=== PATIENT | male | born 1940 | race Caucasian/White ===

== ENCOUNTER 2018-05-22 21:56 | Inpatient (IN) ==
[2018-05-22 22:13] LABS: Baso # (Auto) 0.2 th/mm3 (0.0-0.2); Baso % (Auto) 2.9 % (0.0-2.0); Eos # (Auto) 0.3 th/mm3 (0.0-0.4); Hematocrit 36.3 % (39.0-51.0); Hemoglobin 11.8 gm/dL (13.0-17.0); Lymph # (Auto) 0.7 th/mm3 (1.0-4.8); Lymph % (Auto) 8.9 % (9.0-44.0); Mean Corpuscular HGB Conc 32.5 % (32.0-36.0); Mean Corpuscular Hemoglobin 27.5 pg (27.0-34.0); Mean Corpuscular Volume 84.8 fL (80.0-100.0); Mean Platelet Volume 10.8 fL (7.0-11.0); Mono # (Auto) 0.8 th/mm3 (0.0-0.9); Mono % (Auto) 9.6 % (0.0-8.0); Neut # (Auto) 6.2 th/mm3 (1.8-7.7); Neut % (Auto) 74.6 % (16.0-70.0); Platelet Count 135 th/mm3 (150-450); Red Blood Count 4.28 mil/mm3 (4.50-5.90); Red Cell Distribution Width 16.3 % (11.6-17.2); White Blood Count 8.2 th/mm3 (4.0-11.0)
[2018-05-22] MEDS ORDERED: Sod Chloride 0.9% Inj 1,000 ML IV.CONT SCH (22:15)
[2018-05-22 22:19] LABS: Chloride 100 meq/L (98-107); Potassium 4.2 meq/L (3.5-5.1); Sodium 138 meq/L (136-145)
--- NOTE | 2018-05-22 22:21 | ED ---
HPI General Chief Complaint: Neuro Symptoms/Deficit Stated Complaint: neuro symptoms x tonight 6:30pm Time Seen by Provider: 05/22/18 22:04 Source: patient and family Limitations: other History of Present Illness HPI Narrative: Patient is a 77-year-old male, past medical history significant for atrial fibrillation on Coumadin, COPD on CPAP at night, hypertension, diabetes, pacemaker, hypothyroidism, who presents with complaint of difficulty speaking that began at approximately 645 this evening. His states that they have just finished dinner when his speech started to sound "funny." After several minutes it went back to normal and then began again at an unknown time. Patient denies other symptoms at this time but history is limited secondary to his difficulty speaking. Onset (ago): hour(s) Last Observed Normal: 18:45 Timing confirmed by: spouse Location: speech and dysarthria History of same: No Severity: moderate Relieving factors: none Exacerbating factors: none Context: sudden onset On Anticoagulants: Yes Associated symptoms: denies other symptoms Treatments Prior to Arrival: none Related Data Home Medications Medication Instructions Recorded Confirmed Novolog Mix 70-30 U-100 Insuln 45 units INJ BID 05/22/18 05/22/18 bumetanide 1 mg PO BID 05/22/18 05/22/18 carvedilol 3.125 mg PO BID 05/22/18 05/22/18 cholecalciferol (vitamin D3) 2,000 unit PO DAILY 05/22/18 05/22/18 [Vitamin D3] colchicine 0.6 mg PO DAILY 05/22/18 05/22/18 ferrous sulfate [FeroSul] 3 mg/kg PO DAILY 05/22/18 05/22/18 levothyroxine 88 mcg PO DAILY 05/22/18 05/22/18 metolazone 5 mg PO DAILY 05/22/18 05/22/18 potassium chloride [K-Tab] 20 meq PO DAILY 05/22/18 05/22/18 probenecid 500 mg PO BID 05/22/18 05/22/18 ranitidine HCl 150 mg PO DAILY 05/22/18 05/22/18 simvastatin 40 mg PO QPM 05/22/18 05/22/18 warfarin 8 mg PO DAILY 05/22/18 05/22/18 zaleplon 10 mg PO DAILY 05/22/18 05/22/18 Allergies Allergy/AdvReac Type Severity Reaction Status Date / Time No Known Allergies Allergy Verified 05/22/18 22:31 Review of Systems Except as stated in HPI: all other systems reviewed are negative (per his ) Constitutional Denies fever(s) Eyes Denies photophobia ENT Denies nasal congestion Cardiovascular Denies chest pain Respiratory Denies dyspnea Gastrointestinal Denies abdominal pain Genitourinary Denies flank pain Musculoskeletal Denies back pain Integumentary/Breasts Denies rash Neurologic Reports abnormal speech and Denies headache(s) [facility] Medical History Medical History CHF (congestive heart failure) (Acute) History of high cholesterol (Acute) Hx of renal failure (Acute) Atrial fibrillation (Acute) COPD (chronic obstructive pulmonary disease) (Acute) Cardiac pacemaker (Acute) HTN (hypertension) (Acute) Hypothyroidism (Acute) Type 2 diabetes mellitus (Acute) Surgical History Surgical History Hx of cataract surgery (Acute) History of coronary artery bypass surgery (Acute) Social History Social History Substance History: No History of Abuse Second Hand Smoke Exposure: No Smoking Status: Former smoker Tobacco Type: Cigarettes How Often Do You Have a Drink Containing Alcohol: Never Recent Travel in [facility] within the Last 8 Weeks: No Recent Out of Country Travel within the Last 8 Weeks: No Exam Narrative Exam Narrative: GENERAL: Well-appearing male in no acute distress SKIN: Focused skin assessment warm/dry. HEAD: Atraumatic. Normocephalic. EYES: Pupils equal and round. No scleral icterus. No injection or drainage. ENT: No nasal bleeding or discharge. Mucous membranes pink and moist. NECK: Trachea midline. No JVD. CARDIOVASCULAR: Regular rate and rhythm. No murmur appreciated. Intact and equal peripheral pulses. RESPIRATORY: No accessory muscle use. Clear to auscultation. Breath sounds equal bilaterally. GASTROINTESTINAL: Abdomen soft, non-tender, nondistended. Hepatic and splenic margins not palpable. MUSCULOSKELETAL: No obvious deformities. No clubbing. No cyanosis. No edema. NEUROLOGICAL: Awake and alert. Expressive aphasia with dysarthria. Right lower extremity is weaker than the left. Upper extremities have equal strength. Denies changes in sensation. No facial droop. PSYCHIATRIC: Appropriate mood and affect; insight and judgment normal. Course Initial Documented Vital Signs Pulse Rate 72 05/22/18 22:06 Respiratory Rate 16 05/22/18 22:06 Blood Pressure 140/72 05/22/18 22:06 Pulse Oximetry 96 05/22/18 22:06 Last Documented Vital Signs Temperature 98.0 F 05/22/18 22:13 Pulse Rate 60 05/22/18 23:46 Respiratory Rate 16 05/22/18 23:46 Blood Pressure 121/68 05/22/18 23:46 Pulse Oximetry 96 05/22/18 23:46 Critical Care Time Critical Care Time: Yes Total Critical Care Time: 35 Attestation: Aggregate critical care time was 30 minutes. Time to perform other separately billable procedures was not included in the critical care time. My time did not include minutes spent treating any other patients simultaneously or on activities that did not directly contribute to the patient's treatment. The services I provided to this patient were to treat and/or prevent clinically significant deterioration that could result in: , disability. I provided critical care services requiring my management, as noted below: Chart data review, documentation time, medication orders and management, vital sign assessments/reviewing monitor data, ordering and reviewing lab tests, ordering and interpreting/reviewing x-rays and diagnostic studies, care of the patient and discussion of the patient with the admitting physicians (Dr Dillon the admitting physician, Dr Espinoza - the neurologist, and Dr Villeda - the radiologist). NIH Stroke Scale NIH Stroke Scale Level of Consciousness: 0-Alert Orientation Questions: 0-Answers both correct Responds to Commands: 0-Both tasks correct Gaze Eye Movement: 0-Horizontal movement WNL Visual Mon: 0-No visual field defect Facial Movement: 0-Normal Motor Functions Arm LEFT: 0-No drift Motor Functions Arm RIGHT: 0-No drift Motor Functions Leg LEFT: 0-No drift Motor Functions Leg RIGHT: 1-Drift before 5 seconds Limb Ataxia: 0-No ataxia Sensory Loss: 0-No sensory loss Best Language: 2-Severe aphasia Articulation: 2-Severe dysarthria Extinction or Inattention Sensory: 0-Absent Total: 5 Medical Decision Making MDM Narrative Medical decision making narrative: Patient is a 77-year-old male past medical history save for significant cardiac disease on Coumadin, who presents with complaint of dysarthria and expressive aphasia. On exam he had dysarthria, depressed aphasia, in addition to small amount of right lower extremity weakness, thus code stroke was activated on arrival (LKWT 3 hours prior). Stroke scale was 4-5. CT head showed a subacute or chronic lesion in the left periventricular region. CTA did not show a large clot burden that could be intervened on. I spoke with Dr. Espinoza of neurology who recommended we do not give TPA at this time as we had his INR back (< 1.7) more than 3 hours after the symptoms had started. Dr. Espinoza then recommended the patient be placed on a heparin drip without bolus and admitted to the hospital for further management and evaluation. Differential Diagnosis Differential Diagnosis: Differential diagnosis includes but is not limited to hypoglycemia, acute intracranial hemorrhage, acute cerebral thrombosis, meningitis. Medical Records Medical records reviewed: Yes I reviewed the patient's medical records. Lab Data Lab results reviewed: Yes I reviewed the patient's lab results. Lab results narrative: Labs reveal an elevated creatinine and an INR of only 1.3. Result diagrams: 05/22/18 22:05 05/22/18 22:05 Lab Results 05/22/18 05/22/18 05/22/18 Range/Units 22:05 22:05 22:05 CBC w Diff Auto diff final WBC 8.2 (4.0-11.0) th/mm3 RBC 4.28 L (4.50-5.90) mil/mm3 Hgb 11.8 L (13.0-17.0) gm/dL Hct 36.3 L (39.0-51.0) % MCV 84.8 (80.0-100.0) fL MCH 27.5 (27.0-34.0) pg MCHC 32.5 (32.0-36.0) % RDW 16.3 (11.6-17.2) % Plt Count 135 L (150-450) th/mm3 MPV 10.8 (7.0-11.0) fL Neut % (Auto) 74.6 H (16.0-70.0) % Lymph % (Auto) 8.9 L (9.0-44.0) % Charlton % (Auto) 9.6 H (0.0-8.0) % Eos % (Auto) 4.0 (0.0-4.0) % Baso % (Auto) 2.9 H (0.0-2.0) % Neut # (Auto) 6.2 (1.8-7.7) th/mm3 Lymph # (Auto) 0.7 L (1.0-4.8) th/mm3 Charlton # (Auto) 0.8 (0.0-0.9) th/mm3 Eos # (Auto) 0.3 (0.0-0.4) th/mm3 Baso # (Auto) 0.2 (0.0-0.2) th/mm3 WBC Differential . Differential Comment . PT 12.7 H (9.8-11.6) sec INR 1.3 Ratio APTT 28.3 (24.3-30.1) sec Sodium 138 (136-145) meq/L Potassium 4.2 (3.5-5.1) meq/L Chloride 100 (98-107) meq/L Carbon Dioxide 31.3 (21.0-32.0) meq/L Anion Gap 7 (5-15) meq/L BUN 36 H (7-18) mg/dL Creatinine 1.60 H (0.60-1.30) mg/dL Estimated GFR 42 L (>89) mL/min Random Glucose 97 (74-106) mg/dL Calcium 9.2 (8.5-10.1) mg/dL Total Creatine Kinase 142 (39-308) U/L CK-MB (CK-2) 2.6 (0.5-3.6) ng/mL Troponin I 0.02 (0.02-0.05) ng/mL Blood Type Antibody Screen 05/22/18 Range/Units 22:05 CBC w Diff WBC (4.0-11.0) th/mm3 RBC (4.50-5.90) mil/mm3 Hgb (13.0-17.0) gm/dL Hct (39.0-51.0) % MCV (80.0-100.0) fL MCH (27.0-34.0) pg MCHC (32.0-36.0) % RDW (11.6-17.2) % Plt Count (150-450) th/mm3 MPV (7.0-11.0) fL Neut % (Auto) (16.0-70.0) % Lymph % (Auto) (9.0-44.0) % Charlton % (Auto) (0.0-8.0) % Eos % (Auto) (0.0-4.0) % Baso % (Auto) (0.0-2.0) % Neut # (Auto) (1.8-7.7) th/mm3 Lymph # (Auto) (1.0-4.8) th/mm3 Charlton # (Auto) (0.0-0.9) th/mm3 Eos # (Auto) (0.0-0.4) th/mm3 Baso # (Auto) (0.0-0.2) th/mm3 WBC Differential Differential Comment PT (9.8-11.6) sec INR Ratio APTT (24.3-30.1) sec Sodium (136-145) meq/L Potassium (3.5-5.1) meq/L Chloride (98-107) meq/L Carbon Dioxide (21.0-32.0) meq/L Anion Gap (5-15) meq/L BUN (7-18) mg/dL Creatinine (0.60-1.30) mg/dL Estimated GFR (>89) mL/min Random Glucose (74-106) mg/dL Calcium (8.5-10.1) mg/dL Total Creatine Kinase (39-308) U/L CK-MB (CK-2) (0.5-3.6) ng/mL Troponin I (0.02-0.05) ng/mL Blood Type B Positive Antibody Screen Negative Imaging Data Attestation: I personally reviewed and interpreted this imaging study as follows : My impression: No acute intracranial hemorrhage. Radiologist's impression: Chest X-Ray 05/22/18 22:04 CONCLUSION: 1. Blunting of the right costophrenic angle consistent with small effusion. 2. Moderate cardiomegaly with no perihilar edema. 3. Status post median sternotomy. Head CT 05/22/18 22:04 CONCLUSION: 1. Subcentimeter subacute or older lacunar infarct in the left periventricular white matter. No acute hemorrhage or mass effect. Report was called by [Dr. Villeda to Dr. Henderson at 10:23 PM ] Head CTA 05/22/18 22:04 CONCLUSION: 1. Examination within normal limits for age. Neck CTA 05/22/18 22:04 CONCLUSION: 1. Bilateral calcific plaquing in the carotid bulbs and internal carotid arteries with approximately 50% diameter stenosis. 2. Calcified plaque in the origin of the great vessels with no significant stenosis. ECG Data EKG Prior to Arrival: No Attestation: I personally reviewed and interpreted this ECG as follows: ( Ventricularly paced rhythm at 64 bpm. T-wave inversions present in leads I, 2, V5, V6. No ST changes.) Discharge Plan Discharge Disposition Patient Disposition: 30 Still Patient Discharge Condition Condition: Serious Discharge Details Diagnosis: Acute CVA (cerebrovascular accident), Aphasia Physicians Team ED Provider: Alicia Henderson Primary Care Provider: Rajat Conde Attending Provider: Alan Dillon Discharge Interventions Interventions: Vital Signs Last Done: 05/22/18 23:46 Status ED Status: Admitted Patient
[2018-05-22 22:22] LABS: Anion Gap 7 meq/L (5-15); Calcium 9.2 mg/dL (8.5-10.1); Carbon Dioxide 31.3 meq/L (21.0-32.0); Glucose,Random 97 mg/dL (74-106)
[2018-05-22 22:23] LABS: Blood Urea Nitrogen 36 mg/dL (7-18)
[2018-05-22 22:24] LABS: Activated Partial Thrombo Time 28.3 sec (24.3-30.1); INR 1.3 Ratio; Prothrombin Time 12.7 sec (9.8-11.6)
--- NOTE | 2018-05-22 22:25 | CT ---
EXAM DATE: 05/22/2018 10:18 PM EDT AGE/SEX: 77 years / Male INDICATIONS: Slurred speech. CLINICAL DATA: This is the patient's initial encounter. Patient reports that signs and symptoms have been present for 1 day and indicates a pain score of 0/10. MEDICAL/SURGICAL HISTORY: Hypertension. Diabetes. CABG. Pacemaker. RADIATION DOSE: 60.17 CTDI (mGy) COMPARISON: No prior exams available for comparison. TECHNIQUE: CT of the head without contrast. Using automated exposure control and adjustment of the mA and/or kV according to patient size, radiation dose was kept as low as reasonably achievable to ob tain optimal diagnostic quality images. DICOM format image data is available electronically for revi ew and comparison. FINDINGS: Cerebrum: There is a small subacute or old lacunar infarct in left periventricular white matter. No mass, hemorrhage or shift. No other infarcts identified. Posterior Fossa: The cerebellum and brainstem are intact. The 4th ventricle is midline. The cerebe llopontine angle is unremarkable. Extracranial: The visualized portion of the orbits is intact. Skull: The calvaria is intact. No evidence of skull fracture. CONCLUSION: 1. Subcentimeter subacute or older lacunar infarct in the left periventricular white matter. No acut e hemorrhage or mass effect. Report was called by [Dr. Villeda to Dr. Henderson at 10:23 PM ] Electronically signed by: Yash Villeda MD 05/22/2018 10:24 PM EDT
[2018-05-22 22:26] LABS: Glomerular Filtration Rate 42 mL/min (>89)
[2018-05-22 22:29] LABS: Creatine Kinase 142 U/L (39-308)
[2018-05-22 22:30] LABS: Troponin I 0.02 ng/mL (0.02-0.05)
[2018-05-22 22:41] LABS: Creatine Kinase MB 2.6 ng/mL (0.5-3.6)
--- NOTE | 2018-05-22 22:54 | CT ---
EXAM DATE: 05/22/2018 10:43 PM EDT AGE/SEX: 77 years / Male INDICATIONS: Stroke alert. Slurred speech. CLINICAL DATA: This is the patient's initial encounter. Patient reports that signs and symptoms have been present for 1 day and indicates a pain score of 0/10. MEDICAL/SURGICAL HISTORY: Hypertension. Diabetes. CABG. Pacemaker. RADIATION DOSE: 42.31 CTDI (mGy) ; Combined studies COMPARISON: No prior exams available for comparison. TECHNIQUE: Volumetric scanning was performed using a multi-row detector CT scanner during bolus infu shan of 50 ml Visipaque 320 (iodixanol) nonionic water-soluble contrast as a cumulative dose for mul tiple exams. The data was post processed with a variety of visualization algorithms including full volume maximum intensity projection, multi-planar sliding thin slab reformation, curved planar reform ation, and surface rendering techniques. Using automated exposure control and adjustment of the mA a nd/or kV according to patient size, radiation dose was kept as low as reasonably achievable to obtain optimal diagnostic quality images. DICOM format image data is available electronically for review a nd comparison. FINDINGS: There is excellent visualization of the major intracranial arteries out to the second-order branch ve ssels. There is no evidence for aneurysm, vessel truncation or stenosis, and no evidence for vascula r malformation. CONCLUSION: 1. Examination within normal limits for age. Electronically signed by: Yash Villeda MD 05/22/2018 10:53 PM EDT
--- NOTE | 2018-05-22 23:02 | XR ---
EXAM DATE: 05/22/2018 10:41 PM EDT AGE/SEX: 77 years / Male INDICATIONS: Stroke alert. CLINICAL DATA: This is the patient's initial encounter. Patient reports that signs and symptoms have been present for 1 day and indicates a pain score of 0/10. MEDICAL/SURGICAL HISTORY: Diabetes. Hypertension. CABG. Pacemaker. COMPARISON: [facility], CHEST PA & LAT, 08/02/2013. . FINDINGS: A single AP semierect view the chest was obtained and demonstrates the patient is status post median sternotomy. The left subclavian transvenous pacer remains in place. Moderate cardiomegaly is again no mirta. There is blunting of the right costophrenic angle. There is no perihilar edema. There are no con fluent infiltrates. The bony thorax is intact. CONCLUSION: 1. Blunting of the right costophrenic angle consistent with small effusion. 2. Moderate cardiomegaly with no perihilar edema. 3. Status post median sternotomy. Electronically signed by: Oscar Guajardo MD 05/22/2018 11:01 PM EDT
--- NOTE | 2018-05-22 23:31 | CT ---
EXAM DATE: 05/22/2018 11:19 PM EDT AGE/SEX: 77 years / Male INDICATIONS: Stroke alert. Slurred speech. CLINICAL DATA: This is the patient's initial encounter. Patient reports that signs and symptoms have been present for 1 day and indicates a pain score of 0/10. MEDICAL/SURGICAL HISTORY: Diabetes. Hypertension. CABG. Pacemaker. RADIATION DOSE: 42.31 CTDI (mGy) ; Combined studies COMPARISON: [facility], CT CHEST W/O CONTRAST, 11/12/2015. . TECHNIQUE: Volumetric scanning was performed using a multirow detector CT scanner during bolus infus ion of 50 ml Visipaque 320 (iodixanol) nonionic water-soluble contrast as a cumulative dose for mult iple exams. The data was postprocessed with a variety of visualization algorithms including full-vo lume maximum intensity projection, multiplanar sliding thin-slab reformation, curved-planar reformati on, and surface-rendering techniques. Using automated exposure control and adjustment of the mA and/ or kV according to patient size, radiation dose was kept as low as reasonably achievable to obtain op timal diagnostic quality images. DICOM format image data is available electronically for review and comparison. FINDINGS: Aortic Arch: There is a three-vessel origin of the great vessels from the aorta. Calcification is no mirta in the ostiomeatal regions with no significant stenosis identified. Right Carotid: The common carotid artery is intact. There is mild to moderate calcific plaquing in t he carotid bulb and proximal internal carotid artery with an approximate 50% diameter stenosis. The i nternal carotid artery lumen is smooth without stenosis. The external carotid artery is intact. Left Carotid: The common carotid artery is intact. There is mild to moderate plaque in the carotid b ulb and proximal internal carotid artery with approximate 50% diameter stenosis. The internal carotid artery lumen is smooth without stenosis. The external carotid artery is intact. Vertebrals: The vertebral arteries have a symmetric diameter. No stenotic lesions are seen. Multiple pretracheal and periaortic lymph nodes are again identified. One of the periaortic lymph nod es is more prominent now measures approximately 1.7 cm compared to 1.4 cm on the 2016 examination. So me of the pretracheal lymph nodes are fatty replaced. There is a right pleural effusion which is part ially visualized. The patient is status post median sternotomy. Percent stenosis is calculated using the diameter of the stenotic region over the diameter of the nor mal distal internal carotid artery. CONCLUSION: 1. Bilateral calcific plaquing in the carotid bulbs and internal carotid arteries with approximately 50% diameter stenosis. 2. Calcified plaque in the origin of the great vessels with no significant stenosis. Electronically signed by: Oscar Guajardo MD 05/22/2018 11:30 PM EDT
[2018-05-23 00:47] LABS: Bilirubin,Urine Negative (Negative); Clarity,Urine Clear (Clear); Color,Urine Yellow (Yellw/Straw); Glucose,Urine (UA) Negative (Negative); Leukocyte Esterase,Urine Negative (Negative); Nitrite,Urine Negative (Negative); PH,Urine 7.5 (5.0-8.5); Urobilinogen,Urine 0.2 mg/dL (Less than 2)
[2018-05-23] MEDS: Heparin Drip 25,000 UNIT/250 ML BAG IV.CONT PRN ×2 (00:48→19:18)
[2018-05-23 00:55] LABS: RBC,Urine 0-3 /hpf (0-3); Squamous Epithelial Cell,Urine 0-5 /hpf (0-5); WBC,Urine 0-5 /hpf (0-5)
[2018-05-23 04:56] LABS: Hematocrit 35.7 % (39.0-51.0); Hemoglobin 11.6 gm/dL (13.0-17.0); Mean Corpuscular HGB Conc 32.4 % (32.0-36.0); Mean Corpuscular Hemoglobin 27.9 pg (27.0-34.0); Mean Corpuscular Volume 86.2 fL (80.0-100.0); Mean Platelet Volume 10.2 fL (7.0-11.0); Platelet Count 120 th/mm3 (150-450); Red Blood Count 4.14 mil/mm3 (4.50-5.90); White Blood Count 7.3 th/mm3 (4.0-11.0)
[2018-05-23 08:36] LABS: INR 1.3 Ratio; Prothrombin Time 13.6 sec (9.8-11.6)
--- NOTE | 2018-05-23 08:45 | MB ---
cc: Darian Espinoza MD, PhD DATE: 05/23/2018 REASON FOR CONSULTATION: Stroke alert. HISTORY OF PRESENT ILLNESS: Mr. Martínez is a very pleasant 77-year-old man with atrial fibrillation, presented to the hospital yesterday with acute onset of difficulty getting words out and some mild weakness of the right lower extremity. The patient was on Coumadin for atrial fibrillation, which has been on hold because of ophthalmologic surgery; however, he did resume his Coumadin last Tuesday, but was only on it for 4 days prior to yesterday's event. NIH stroke scale in the ER was 4. His symptoms began abruptly at 6:45 p.m. However, he was seen by the ER physician at 2204. He was evaluated with a CT scan of the brain, which showed a small area of low attenuation in the left periventricular white matter suggestive of a subacute stroke versus a more chronic process. No hemorrhage. I discussed this case with Dr. Alicia Henderson in the emergency room yesterday evening. He was beyond the 3 hour window. However, because he was on Coumadin, was not a candidate for the 4-1/2 hour window for TPA, which stipulates the patient is not a candidate for the 4-1/2 hour window, if on Coumadin despite the INR. Therefore, we proceeded with CT angiography of the brain to evaluate for the possibility of a large vessel occlusion that would be amenable to intravascular extraction. However, the CTA of the brain was within normal limits. The INR came back at subtherapeutic at 1.3. I recommended, therefore, since the patient is not a candidate for TPA and there is no evidence of large area of ischemia to go ahead and start IV heparin, which has been instituted. The patient reports significant improvement. He thinks his speech is back to normal at the present time with normal fluency. No weakness. PAST MEDICAL HISTORY: He has got a pacemaker in place, atrial fibrillation, recent cataract surgery, COPD, hypertension, hypothyroidism, type 2 diabetes, congestive heart failure, hypercholesterolemia, history of renal failure. CURRENT MEDICATIONS: 1. IV heparin per protocol. 2. Atropine sulfate to the left eye b.i.d. 3. Bumex 1 mg daily. 4. Coreg 3.125 mg b.i.d. 5. Iron sulfate 325 mg b.i.d. 6. Synthroid 88 mcg daily. 7. Vitamin D supplementation. 8. He takes NovoLog insulin b.i.d. 9. Simvastatin 40 mg daily. 10. Ranitidine 150 mg daily. 11. Prednisolone eyedrops. 12. Benemid 500 mg b.i.d. 13. Ocuflox eyedrops. 14. Coumadin 5 mg daily. 15. Sonata as needed for sleep. NEUROLOGICAL EXAMINATION: VITAL SIGNS: His blood pressure is 121/68, pulse is 60, respirations are 16, temperature 97.2 degrees. Higher cortical function: Alert and oriented x3. Speech is fluent at the present time. There is no evidence of aphasia. He can follow commands. He can repeat simple phrases with normal fluency. There is no neglect. Cranial nerves are normal in detail. Motor exam demonstrates 5/5 strength of all groups in both upper and lower extremities. There is no drift. Fine motor skills are normal. Reflexes are 2+ symmetric with no Babinski present. CT of the brain shows a very small area of low attenuation in the left periventricular white matter, probably subacute stroke. No hemorrhage is identified. CTA brain is normal and no evidence of large vessel occlusion. CTA neck shows bilateral calcified plaques in the carotid arteries, but only approximately 50% stenosis bilaterally. LABORATORY DATA: The white count is 8200, hemoglobin 11.8, hematocrit 36.3%, platelet count 135,000. As noted prior INR on admission 1.3. PT 12.7, APTT 28.3. Currently on IV heparin, APTT 38.2. Sodium is 138, potassium 4.2, chloride 100, CO2 31.3, BUN is 36, creatinine 1.60, GFR is 42, glucose 97, calcium 9.2. CPK 142. UA pH 7.5, specific gravity 1.010, otherwise normal. IMPRESSION: A small left MCA distribution stroke with resolution of his symptoms, probably cardioembolic in nature. As noted above, the patient is not a candidate for IV TPA as he was out of the 3-hour window. There is no evidence of any large vessel occlusion for interventional radiology. At the current time, would recommend continuing IV heparin. Continue Coumadin. We will discontinue the heparin once the INR is therapeutic, i.e., between 2 and 3. Also obtain an echocardiogram and will review a lipid panel as well. Thank you for asking me to see this nice patient in consult. Darian Espinoza MD, PhD EAN/KAVYA , 08:20 AM , 08:32 AM
[2018-05-23] MEDS: BRINZOLAMIDE BRIMONIDINE LEFT EYE SCH ×3 (10:47→17:35)
[2018-05-23] MEDS: Atropine 1% Opth Drops 2 ML Bottle LEFT EYE SCH ×2 (10:47→21:00)
[2018-05-23] MEDS: Famotidine 20 MG Tablet PO SCH (10:48)
[2018-05-23] MEDS: Ferrous Sulfate 325 MG Tablet PO SCH ×2 (10:48→21:05)
[2018-05-23] MEDS: Ofloxacin 0.3% Opth Drops 5 ML Bottle LEFT EYE SCH ×7 (10:49→22:28)
[2018-05-23] MEDS: prednisoLONE Acetate 1% Opth Susp 5 ML Bottle LEFT EYE SCH ×7 (10:49→22:27)
[2018-05-23] MEDS: Insulin Aspart Prot 70/30 1,000 UNITS/10 ML Vial SQ SCH ×2 (11:03→19:24)
[2018-05-23] MEDS: Levothyroxine 88 MCG Tablet PO SCH (11:04)
[2018-05-23 11:45] LABS: Chol/HDL Ratio 2.65 Ratio
--- NOTE | 2018-05-23 12:04 | P.HP ---
History of Present Illness Service: [facility] Hospitalist service Primary Care Physician: Rajat Conde MD History of Present Illness: HPI: This is a pleasant 77-year-old white male who came to the emergency room last evening after experiencing trouble with his speech and difficulty getting his words out. He was noted at the ER to have some subtle right lower extremity weakness as well. He has atrial fibrillation and a pacemaker and has been on warfarin. He however had been off his warfarin recently for an eye procedure and had a cataract extraction of the left eye in early April and had some complications with the lens and had another procedure. He had been off his warfarin and was only back on it for the last 4 days and when he came to the emergency room his INR was only 1.3. He is also scheduled for another eye procedure this week. In the ER a CT brain scan showed a small area of low attenuation in the left periventricular white matter suggestive of a subacute stroke versus a more chronic process. The ER physician discussed these findings with a neurologist, Dr. Darian Espinoza, last evening and he recommended putting the patient on heparin drip without a bolus. A CTA of the brain was within normal limits. A CTA of the neck just showed some bilateral plaque at approximately 50% stenosis of the carotid arteries. I saw the patient early this morning any states his symptoms had resolved. I did not note any difficulty with him saying his words or any dysarthria. He is to be maintained on heparin until his warfarin dosing achieve an INR between 2.0 and 3.0. Medical history: Type 2 diabetes mellitus with nephropathy, chronic kidney disease, neuropathy Hypertension Hyperlipidemia Hypothyroidism Stage III chronic kidney disease Mild COPD Obstructive sleep apnea on CPAP Atrial fibrillation on warfarin Permanent pacemaker placement 11/23/2017 History of severe aortic stenosis with T AVR on 12/12/2017 History of diastolic heart failure that improved after aortic valve surgery Coronary artery disease with prior 3 vessel CABG in 2003. A cardiac cath on showed significant calcification of the proximal and mid left circumflex with totally occluded mid LAD and totally occluded proximal RCA. There was a patent SVG to the mid RCA, a patent SVG Y graft to the mid circumflex obtuse marginal and distal PLV, a patent SMITH to the mid to distal LAD of the left circumflex History of gout History of colon polyps Carotid artery disease as mentioned based on CTA of the neck just done History of sick sinus syndrome Surgical history: Three-vessel CABG 2004 Left cataract surgery 05/01/2018 Patient permanent pacemaker 11/23/2017 T AVR 12/12/2017 because of severe aortic stenosis Cardiac cath 12/07/2017 EGD/colonoscopy in early 2017 Allergy: Rhinocaps Medications: NovoLog 70/30 insulin around 45 units twice a day Bumex 1 mg a day Carvedilol 3.125 mg twice a day Levothyroxine 88 mcg 1 daily Probenecid 500 mg twice a day Ranitidine 150 mg twice a day Simvastatin 40 mg a day Potassium chloride 10 mEq twice a day Zaleplon 10 mg at bedtime as needed insomnia Warfarin he has been on 10 mg on Tuesday and Tuesday and 8 mg on Tuesday, Tuesday, Tuesday, , Tuesday Ferrous sulfate 325 mg twice a day Vitamin D3 2000 units daily He is also on several different eyedrops from recent eye procedures that are listed on his med record Family history: Mother at 75 of congestive heart failure she also had prior heart attack and angina Father at age 63 of a heart attack Sister of complications of coronary artery bypass surgery in her in her early 70s Social history: No alcohol use He smoked 1 pack a day from 1962 in 1997 He is retired - Diagnosis (1) Acute CVA (cerebrovascular accident) (2) Type 2 diabetes mellitus with chronic kidney disease (3) Atrial fibrillation (4) Hyperlipemia (5) HTN (hypertension) (6) History of aortic valve stenosis (7) History of sick sinus syndrome (8) Obstructive sleep apnea (9) Stage 3 chronic kidney disease (10) Status post transcatheter aortic valve replacement (11) COPD (chronic obstructive pulmonary disease) (12) Cardiac pacemaker (13) History of coronary artery bypass surgery (14) Hypothyroidism Inpatient Certification: I certify that the inpatient services were ordered in accordance with Medicare regulations governing the order. This includes certification that hospital inpatient services are reasonable and necessary and in the case of services not specified as inpatient-only under 42 CFR 419.22(n), that they are appropriately provided as inpatient services in accordance to with the 2-midnight benchmark under 43 CFR 412.3(e) Estimated Total Length of Stay (Days): 3 Plans for Post Hospital Care: Home Review of Systems Review of systems: General: Denies any fever, chills, sweats HEENT: Denies any sore throat, runny nose, ear pain, headache. He has had problem with his vision in his left eye due to complications of recent cataract surgery and some partial bleeding into the eye. Cardiovascular: Denies any chest pain, palpitations, orthopnea, PND Pulmonary: Denies cough, hemoptysis, wheezing GI: Denies heartburn, indigestion, abdominal pain, melena, constipation, diarrhea : Denies dysuria, urgency, frequency, hematuria Musculoskeletal: Denies any significant joint pain Skin: Denies any rash or itching Psychiatry: Denies any anxiety or depression Extremities: Denies any edema or calf tenderness PMFSH - History History Provided By: Patient, Family Member - Medical History Medical History: Medical History (Last Updated 05/23/18 @ 11:57 by Alan Dillon MD) History of aortic valve stenosis (Acute) Hyperlipemia (Acute) Obstructive sleep apnea (Acute) Type 2 diabetes mellitus with chronic kidney disease (Acute) Stage 3 chronic kidney disease (Acute) History of sick sinus syndrome (Acute) Hypothyroidism (Acute) Cardiac pacemaker (Acute) Atrial fibrillation (Acute) HTN (hypertension) (Acute) COPD (chronic obstructive pulmonary disease) (Acute) CHF (congestive heart failure) History of colonic polyps History of high cholesterol Hx of gout Hx of renal failure Pulmonary hypertension - Surgical History Surgical History: Surgical History (Last Updated 05/23/18 @ 11:56 by Alan Dillon MD) Status post transcatheter aortic valve replacement (Acute) History of coronary artery bypass surgery (Acute) Hx of cataract surgery - Family History Family History: Family History (Last Updated 05/23/18 @ 11:01 by Alan Dillon MD) Mother Congestive heart failure Father Myocardial infarction Mother Myocardial infarction Sister Hx of CABG - Tobacco History Second Hand Smoke Exposure: No Tobacco Use In Past 30 Days: No Smoking Status: Never smoker Tobacco Type: Cigarettes - Alcohol History How Often Do You Have a Drink Containing Alcohol: Never - Substance Use History Substance History: No History of Abuse - Travel History Recent Travel in the [place] Within the Last 8 Weeks: No Recent Travel Out of the Country Within the Last 8 Weeks: No - Immunization History Tetanus Immunization: Unable to Assess Hx Influenza Vaccine This Season: Yes Medications and Allergies Active Medications: Active Medications Atropine Sulfate (Isopto Atropine 1% Opth Drops) 1 drops LEFT EYE BID SERGEY Last Admin: 05/23/18 10:47 Dose: 1 drops Bumetanide (Bumex) 1 mg PO DAILY [facility] Carvedilol (Coreg) 3.125 mg PO BID [facility] Last Admin: 05/23/18 10:48 Dose: 3.125 mg Famotidine (Pepcid) 20 mg PO DAILY [facility] Last Admin: 05/23/18 10:48 Dose: 20 mg Ferrous Sulfate (Ferosul) 325 mg PO BID [facility] Last Admin: 05/23/18 10:48 Dose: 325 mg Sodium Chloride (Ns Inj) 1,000 mls @ 70 mls/hr IV.CONT .[id number] [facility] Stop: 05/23/18 12:32 Last Admin: 05/22/18 22:33 Dose: 70 mls/hr Heparin Sodium/Dextrose (Heparin/D5w 25,000 U/250 Ml) 25,000 unit in 250 mls @ 0 mls/hr IV.CONT TITRATE PRN; Protocol PRN Reason: Per Protocol Last Titration: 05/23/18 07:25 Dose: 1,300 units/hr, 13 mls/hr Insulin Aspart (Novolog Mix 70/30 Inj) 45 units SQ DAILY@0800,1700 [facility] Levothyroxine Sodium (Synthroid) 88 mcg PO DAILY@0600 [facility] Ofloxacin (Ocuflox 0.3% Opth Drops) 1 drop LEFT EYE Q2HR [facility] Last Admin: 05/23/18 10:49 Dose: 1 drop Patient Own: ( Brinzolamide- Brimonidine [ Simbrinza] 1 Drp) 0 each LEFT EYE TID [facility] Last Admin: 05/23/18 10:47 Dose: 1 each Potassium Chloride (K-Dur) 20 meq PO DAILY [facility] Last Admin: 05/23/18 10:48 Dose: 20 meq Pravastatin Sodium (Pravachol) 80 mg PO QPM [facility] Prednisolone Acetate (Pred Forte 1% Opth Susp) 1 drop LEFT EYE Q2HR [facility] Last Admin: 05/23/18 10:49 Dose: 1 drop Probenecid (Benemid) 500 mg PO BID [facility] Sodium Chloride (Ns Flush) 2 ml IV.FLUSH PRN PRN PRN Reason: FLUSH AFTER USING IV ACCESS Vitamin D (Vitamin D3) 2,000 unit PO DAILY [facility] Last Admin: 05/23/18 10:48 Dose: 2,000 unit Warfarin Sodium (Coumadin) 10 mg PO TuFr@1600 SERGEY Warfarin Sodium (Coumadin) 8 mg PO MoWeThSa@1600 [facility] Zaleplon (Sonata) 10 mg PO HS PRN PRN Reason: Insomnia Allergies Allergy/AdvReac Type Severity Reaction Status Date / Time No Known Allergies Allergy Verified 05/22/18 22:31 Home Medications Medication Instructions Recorded Confirmed Type Novolog Mix 70-30 U-100 Insuln 45 units INJ BID 05/22/18 05/22/18 History bumetanide 1 mg PO DAILY 05/22/18 05/23/18 History carvedilol 3.125 mg PO BID 05/22/18 05/22/18 History cholecalciferol (vitamin D3) 2,000 unit PO DAILY 05/22/18 05/22/18 History [Vitamin D3] ferrous sulfate [FeroSul] 325 mg PO BID 05/22/18 05/23/18 History levothyroxine 88 mcg PO DAILY 05/22/18 05/22/18 History potassium chloride [K-Tab] 20 meq PO DAILY 05/22/18 05/22/18 History probenecid 500 mg PO BID 05/22/18 05/22/18 History ranitidine HCl 150 mg PO DAILY 05/22/18 05/22/18 History simvastatin 40 mg PO QPM 05/22/18 05/22/18 History zaleplon 10 mg PO HS PRN 05/22/18 05/23/18 History atropine 1 drp LEFT EYE BID 05/23/18 05/23/18 History brinzolamide-brimonidine 1 drp LEFT EYE TID 05/23/18 05/23/18 History [Simbrinza] ofloxacin 1 drp LEFT EYE Q2H 05/23/18 05/23/18 History prednisolone acetate See Label Instructions .ROUTE 05/23/18 05/23/18 History .COMPLEX warfarin 5 mg PO DIRECTED 05/23/18 05/23/18 History Exam Vital signs: Vital Signs 05/22/18 22:06 05/22/18 22:08 05/22/18 22:12 Temperature Pulse Rate 72 Respiratory Rate 16 Blood Pressure 140/72 Pulse Oximetry 96 96 96 05/22/18 22:13 05/22/18 22:21 05/22/18 23:46 Temperature 98.0 F Pulse Rate 72 60 Respiratory Rate 16 16 Blood Pressure 140/72 121/68 Pulse Oximetry 96 96 96 05/23/18 00:20 05/23/18 01:36 05/23/18 01:51 Temperature 97.2 F L Pulse Rate 62 59 L 71 Respiratory Rate 16 20 Blood Pressure 120/70 Pulse Oximetry 95 95 05/23/18 04:00 05/23/18 08:00 Temperature 98.2 F 96.7 F L Pulse Rate 61 65 Respiratory Rate 21 16 Blood Pressure 140/70 127/62 Pulse Oximetry 97 93 L Intake & Output 05/22/18 05/23/18 05/23/18 18:59 06:59 18:59 Output Total 300 / 300 Balance -300 / -300 Weight 108.5 kg Output: Urine 300 / 300 Other: Date of Last Bowel Movement 05/22/18 Weight On Admission 108 kg Narrative: PE: This is a pleasant white male in no distress. HEENT: His left pupil is dilated due to his Atropine eye drops, EOMs intact, sclera nonicteric, mouth without lesions, TMs intact, nose without lesions Neck: No JVD, neck is supple, no carotid bruit Heart: Regular rate and rhythm without murmurs or gallops. He was noted to have a paced rhythm on monitor. Lungs: Clear to auscultation Abdomen: Soft, nontender, no masses, no organomegaly Extremities: No edema, pulses palpated, no calf tenderness Skin: Without lesions or rash Neuro: Alert, oriented, normal motor exam with no obvious weakness now of the right lower extremity that was noted in the ER, sensation intact, cranial nerves intact other than a dilated left pupil due to Atropine eye drops. He also has no obvious speech problems with no current dysphasia or dysarthria Results - Labs CBC & Chem 7: 05/23/18 04:30 05/22/18 22:05 Labs: Laboratory Results - last 24 hr 05/22/18 05/22/18 05/22/18 22:05 22:05 22:05 CBC w Diff Auto diff final WBC 8.2 RBC 4.28 L Hgb 11.8 L Hct 36.3 L MCV 84.8 MCH 27.5 MCHC 32.5 RDW 16.3 Plt Count 135 L MPV 10.8 Neut % (Auto) 74.6 H Lymph % (Auto) 8.9 L Reeves % (Auto) 9.6 H Eos % (Auto) 4.0 Baso % (Auto) 2.9 H Neut # (Auto) 6.2 Lymph # (Auto) 0.7 L Reeves # (Auto) 0.8 Eos # (Auto) 0.3 Baso # (Auto) 0.2 WBC Differential . Differential Comment . PT 12.7 H INR 1.3 APTT 28.3 Sodium 138 Potassium 4.2 Chloride 100 Carbon Dioxide 31.3 Anion Gap 7 BUN 36 H Creatinine 1.60 H Estimated GFR 42 L POC Glucose Random Glucose 97 Calcium 9.2 Total Creatine Kinase 142 CK-MB (CK-2) 2.6 Troponin I 0.02 Urine Color Urine Clarity Urine pH Ur Specific [place] Urine Protein Urine Glucose (UA) Urine Ketones Urine Occult Blood Urine Nitrate Urine Bilirubin Urine Urobilinogen Ur Leukocyte Esterase Urine RBC Urine WBC Ur Squamous Epith Cells Micro UA Comment Urine Culture Comments Blood Type Antibody Screen 05/22/18 05/23/18 05/23/18 22:05 00:30 04:30 CBC w Diff WBC RBC Hgb Hct MCV MCH MCHC RDW Plt Count MPV Neut % (Auto) Lymph % (Auto) Reeves % (Auto) Eos % (Auto) Baso % (Auto) Neut # (Auto) Lymph # (Auto) Reeves # (Auto) Eos # (Auto) Baso # (Auto) WBC Differential Differential Comment PT INR APTT 38.2 H D Sodium Potassium Chloride Carbon Dioxide Anion Gap BUN Creatinine Estimated GFR POC Glucose Random Glucose Calcium Total Creatine Kinase CK-MB (CK-2) Troponin I Urine Color Yellow Urine Clarity Clear Urine pH 7.5 Ur Specific [place] 1.010 Urine Protein Negative Urine Glucose (UA) Negative Urine Ketones Negative Urine Occult Blood Negative Urine Nitrate Negative Urine Bilirubin Negative Urine Urobilinogen 0.2 Ur Leukocyte Esterase Negative Urine RBC 0-3 Urine WBC 0-5 Ur Squamous Epith Cells 0-5 Micro UA Comment Culture not ind Urine Culture Comments Culture not ind Blood Type B Positive Antibody Screen Negative 05/23/18 05/23/18 05/23/18 04:30 04:30 08:28 CBC w Diff WBC 7.3 RBC 4.14 L Hgb 11.6 L Hct 35.7 L MCV 86.2 MCH 27.9 MCHC 32.4 RDW 16.0 Plt Count 120 L MPV 10.2 Neut % (Auto) Lymph % (Auto) Reeves % (Auto) Eos % (Auto) Baso % (Auto) Neut # (Auto) Lymph # (Auto) Reeves # (Auto) Eos # (Auto) Baso # (Auto) WBC Differential Differential Comment PT 13.6 H INR 1.3 APTT Sodium Potassium Chloride Carbon Dioxide Anion Gap BUN Creatinine Estimated GFR POC Glucose 135 H Random Glucose Calcium Total Creatine Kinase CK-MB (CK-2) Troponin I Urine Color Urine Clarity Urine pH Ur Specific [place] Urine Protein Urine Glucose (UA) Urine Ketones Urine Occult Blood Urine Nitrate Urine Bilirubin Urine Urobilinogen Ur Leukocyte Esterase Urine RBC Urine WBC Ur Squamous Epith Cells Micro UA Comment Urine Culture Comments Blood Type Antibody Screen - Imaging Impressions Chest X-Ray 05/22/18 22:04 CONCLUSION: 1. Blunting of the right costophrenic angle consistent with small effusion. 2. Moderate cardiomegaly with no perihilar edema. 3. Status post median sternotomy. Head CT 05/22/18 22:04 CONCLUSION: 1. Subcentimeter subacute or older lacunar infarct in the left periventricular white matter. No acute hemorrhage or mass effect. Report was called by [Dr. Villeda to Dr. Henderson at 10:23 PM ] Head CTA 05/22/18 22:04 CONCLUSION: 1. Examination within normal limits for age. Neck CTA 05/22/18 22:04 CONCLUSION: 1. Bilateral calcific plaquing in the carotid bulbs and internal carotid arteries with approximately 50% diameter stenosis. 2. Calcified plaque in the origin of the great vessels with no significant stenosis. Caprini VTE Risk Assessment Caprini VTE Risk Assessment: Moderate/High Risk (score >= 2) Caprini Risk Assessment Model: Point Value = 1 Point Value = 2 Point Value = 3 Point Value = 5 Age 41-60 Minor surgery BMI > 25 kg/m2 Swollen legs Varicose veins or History of unexplained or recurrent spontaneous Oral contraceptives or hormone replacement Sepsis (< 1 month) Serious lung disease, including pneumonia (< 1 month) Abnormal pulmonary function Acute myocardial infarction Congestive heart failure (< 1 month) History of inflammatory bowel disease Medical patient at bed rest Age 61-74 Arthroscopic surgery Major open surgery (> 45 min) Laparoscopic surgery (> 45 min) Malignancy Confined to bed (> 72 hours) Immobilizing plaster cast Central venous access Age >= 75 History of VTE Family history of VTE Factor V Leiden Prothrombin [id number] Lupus anticoagulant Anticardiolipin antibodies Elevated serum homocysteine Heparin-induced thrombocytopenia Other congenital or acquired thrombophilia Stroke (< 1 month) Elective arthroplasty Hip, pelvis, or leg fracture Acute spinal cord injury (< 1 month) Prophylaxis Regimen: Total Risk Factor Score Risk Level Prophylaxis Regimen 0-1 Low Early ambulation 2 Moderate Order ONE of the following: *Sequential Compression Device (SCD) *Heparin 5000 units SQ BID 3-4 Higher Order ONE of the following medications: *Heparin 5000 units SQ TID *Enoxaparin/Lovenox 40 mg SQ daily (WT < 150 kg, CrCl > 30 mL/min) *Enoxaparin/Lovenox 30 mg SQ daily (WT < 150 kg, CrCl > 10-29 mL/min) *Enoxaparin/Lovenox 30 mg SQ BID (WT < 150 kg, CrCl > 30 mL/min) AND/OR *Sequential Compression Device (SCD) 5 or more Highest Order ONE of the following medications: *Heparin 5000 units SQ TID (Preferred with Epidurals) *Enoxaparin/Lovenox 40 mg SQ daily (WT < 150 kg, CrCl > 30 mL/min) *Enoxaparin/Lovenox 30 mg SQ daily (WT < 150 kg, CrCl > 10-29 mL/min) *Enoxaparin/Lovenox 30 mg SQ BID (WT < 150 kg, CrCl > 30 mL/min) AND *Sequential Compression Device (SCD) 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 Code(s): E11.22 - Type 2 diabetes mellitus with diabetic chronic kidney disease Status: Chronic (3) Atrial fibrillation Code(s): I48.91 - Unspecified atrial fibrillation Status: Chronic (4) Hyperlipemia Code(s): E78.5 - Hyperlipidemia, unspecified Status: Chronic (5) HTN (hypertension) Code(s): I10 - Essential (primary) hypertension Status: Chronic (6) History of aortic valve stenosis Code(s): Z86.79 - Personal history of other diseases of the circulatory system Status: Resolved (7) History of sick sinus syndrome Code(s): Z86.79 - Personal history of other diseases of the circulatory system Status: Chronic (8) Obstructive sleep apnea Code(s): G47.33 - Obstructive sleep apnea (adult) (pediatric) Status: Chronic (9) Stage 3 chronic kidney disease Code(s): N18.3 - Chronic kidney disease, stage 3 (moderate) Status: Chronic (10) Status post transcatheter aortic valve replacement Code(s): Z95.2 - Presence of prosthetic heart valve Status: Chronic (11) COPD (chronic obstructive pulmonary disease) Code(s): J44.9 - Chronic obstructive pulmonary disease, unspecified Status: Chronic (12) Cardiac pacemaker Code(s): Z95.0 - Presence of cardiac pacemaker Status: Chronic (13) History of coronary artery bypass surgery Code(s): Z95.1 - Presence of aortocoronary bypass graft Status: Chronic (14) Hypothyroidism Code(s): E03.9 - Hypothyroidism, unspecified Status: Chronic - Plan Plan: Patient was admitted and begun on a heparin drip without bolus. His warfarin is being continued with the goal of an INR between 2.0 and 3.0. We will consult is been placed to neurology, Dr. Espinoza. A 2D echocardiogram has been ordered. He is on warfarin and heparin which should cover him for DVT prophylaxis. He will be maintained on his regular medications. He was evaluated and found to have no swallowing difficulty so he is already been placed on a diabetic diet. Code Status: Full code
--- NOTE | 2018-05-23 18:27 | ECG ---
Date Performed: 05/22/2018 Time Performed: 22:32:19 PTAGE: 77 years EKG: ELECTRONIC VENTRICULAR PACEMAKER ABNORMAL RHYTHM ECG PREVIOUS TRACING : 08/01/2013 01.24 Compared to prior tracing, rhythm is now paced Underlying r hythm is likely atrial fibrillatrion DOCTOR: Nikhil Trinidad Interpretating Date/Time 05/23/2018 18:26:53
[2018-05-23] MEDS ORDERED: Insulin Aspart Prot 70/30 1,000 UNITS/10 ML Vial SQ ONE (18:45)
[2018-05-23] MEDS ORDERED: Zolpidem Tartrate 5 MG Tablet PO PRN (21:00)
--- NOTE | 2018-05-23 22:40 | ECHRPT ---
Indication: CVA CONCLUSIONS Normal left ventricular size. Mild concentric left ventricular hypertrophy. The left ventricular systolic function is mildly reduced with an estimated ejection fraction in the range of 45- 50%. There is abnormal (paradoxical) septal motion consistent with postoperative state. The right ventricle is moderately dilated. The left atrial size is moderately dilated. Mild mitral valve regurgitation. Status-post percutaneous aortic valve replacement. There is mild to moderate tricuspid valve regurgitation. The estimated pulmonary arterial pressure is 68 mmHg. There is estimated severe pulmonary hypertension present ( > 70 mmHg). BP: / HR: Rhythm: Sinus MEASUREMENTS (Male / Female) Normal Values Technical Quality:Fair 2D ECHO LVOT Diameter 2.2 cm Aortic Root Diameter 3.0 cm DOPPLER AV Peak Velocity 231.0 cm/s AV Peak Gradient 21.3 mmHg AV Mean Gradient 10.5 mmHg AV Velocity Time Integral 42.4 cm LVOT Peak Velocity 91.2 cm/s LVOT Peak Gradient 3.3 mmHg LVOT Velocity Time Integral 16.3 cm AV Area Cont Eq vti 1.5 cm AV Area Cont Eq pk 1.5 cm Mitral E Point Velocity 149.0 cm/s LV E' Lateral Velocity 14.7 cm/s Mitral E to LV E' Lateral Ratio 10.1 LV E' Septal Velocity 6.8 cm/s Mitral E to LV E' Septal Ratio 21.8 TR Peak Velocity 365.0 cm/s TR Peak Gradient 53.3 mmHg Right Atrial Pressure 15.0 mmHg Pulmonary Artery Systolic Pressu 68.3 mmHg Right Ventricular Systolic Press 68.3 mmHg PV Peak Velocity 47.4 cm/s PV Peak Gradient 0.9 mmHg FINDINGS LEFT VENTRICLE Normal left ventricular size. Mild concentric left ventricular hypertrophy. The left ventricular systolic function is mildly reduced with an estimated ejection fraction in the range of 45- 50%. There is abnormal (paradoxical) septal motion consistent with postoperative state. RIGHT VENTRICLE The right ventricle is moderately dilated. LEFT ATRIUM The left atrial size is moderately dilated. RIGHT ATRIUM The right atrial size is normal. ATRIAL SEPTUM No atrial level shunt is demonstrated by color flow Doppler interrogation. AORTA The aortic root and proximal ascending aorta are normal in size on limited imaging. MITRAL VALVE Mild mitral valve regurgitation. AORTIC VALVE Status-post percutaneous aortic valve replacement. TRICUSPID VALVE There is mild to moderate tricuspid valve regurgitation. The estimated pulmonary arterial pressure is 68.3 mmHg. There is estimated severe pulmonary hypertension present ( > 70 mmHg). Danielle Baxter MD, FACC (Electronically Signed) Final Date:23 May 2018 22:39
[2018-05-24] MEDS: Ofloxacin 0.3% Opth Drops 5 ML Bottle LEFT EYE SCH ×11 (03:29→22:59)
[2018-05-24] MEDS: prednisoLONE Acetate 1% Opth Susp 5 ML Bottle LEFT EYE SCH ×10 (03:30→23:16)
[2018-05-24 05:45] LABS: Baso % (Auto) 0.6 % (0.0-2.0); Eos # (Auto) 0.3 th/mm3 (0.0-0.4); Eos % (Auto) 4.1 % (0.0-4.0); Hemoglobin 11.5 gm/dL (13.0-17.0); Lymph # (Auto) 0.8 th/mm3 (1.0-4.8); Lymph % (Auto) 11.3 % (9.0-44.0); Mean Corpuscular Hemoglobin 27.7 pg (27.0-34.0); Mean Corpuscular Volume 86.7 fL (80.0-100.0); Mean Platelet Volume 10.9 fL (7.0-11.0); Mono # (Auto) 0.6 th/mm3 (0.0-0.9); Platelet Count 113 th/mm3 (150-450); Red Blood Count 4.15 mil/mm3 (4.50-5.90); Red Cell Distribution Width 16.1 % (11.6-17.2); White Blood Count 6.7 th/mm3 (4.0-11.0)
[2018-05-24 06:03] LABS: Calcium 9.2 mg/dL (8.5-10.1); Carbon Dioxide 29.2 meq/L (21.0-32.0)
[2018-05-24] MEDS: Levothyroxine 88 MCG Tablet PO SCH (06:14)
[2018-05-24 06:50] LABS: INR 1.3 Ratio; Prothrombin Time 12.9 sec (9.8-11.6)
--- NOTE | 2018-05-24 08:55 | P.PNNEU ---
Subjective Subjective Comments: No acute events reported No recurrent speech difficulty or focal weakness Active Medications: Active Medications Atropine Sulfate (Isopto Atropine 1% Opth Drops) 1 drops LEFT EYE BID [facility] Last Admin: 05/23/18 21:00 Dose: 1 drops Bumetanide (Bumex) 1 mg PO DAILY [facility] Last Admin: 05/23/18 11:07 Dose: 1 mg Carvedilol (Coreg) 3.125 mg PO BID [facility] Last Admin: 05/23/18 21:05 Dose: 3.125 mg Famotidine (Pepcid) 20 mg PO DAILY [facility] Last Admin: 05/23/18 10:48 Dose: 20 mg Ferrous Sulfate (Ferosul) 325 mg PO BID [facility] Last Admin: 05/23/18 21:05 Dose: 325 mg Heparin Sodium/Dextrose (Heparin/D5w 25,000 U/250 Ml) 25,000 unit in 250 mls @ 0 mls/hr IV.CONT TITRATE PRN; Protocol PRN Reason: Per Protocol Last Admin: 05/23/18 19:18 Dose: 1,300 units/hr, 13 mls/hr Insulin Aspart (Novolog Mix 70/30 Inj) 35 units SQ DAILY@0800,1700 [facility] Levothyroxine Sodium (Synthroid) 88 mcg PO DAILY@0600 [facility] Last Admin: 05/24/18 06:14 Dose: 88 mcg Ofloxacin (Ocuflox 0.3% Opth Drops) 1 drop LEFT EYE Q2HR [facility] Last Admin: 05/24/18 06:15 Dose: 1 drop Patient Own: ( Brinzolamide- Brimonidine [ Simbrinza] 1 Drp) 0 each LEFT EYE TID [facility] Last Admin: 05/23/18 17:35 Dose: 1 each Potassium Chloride (K-Dur) 20 meq PO DAILY [facility] Last Admin: 05/23/18 10:48 Dose: 20 meq Pravastatin Sodium (Pravachol) 80 mg PO QPM [facility] Last Admin: 05/23/18 19:00 Dose: 80 mg Prednisolone Acetate (Pred Forte 1% Opth Susp) 1 drop LEFT EYE Q2HR [facility] Last Admin: 05/24/18 06:15 Dose: 1 drop Probenecid (Benemid) 500 mg PO BID [facility] Last Admin: 05/23/18 22:28 Dose: 500 mg Sodium Chloride (Ns Flush) 2 ml IV.FLUSH PRN PRN PRN Reason: FLUSH AFTER USING IV ACCESS Vitamin D (Vitamin D3) 2,000 unit PO DAILY [facility] Last Admin: 05/23/18 10:48 Dose: 2,000 unit Warfarin Sodium (Coumadin) 10 mg PO TuFr@1600 [facility] Last Admin: 05/23/18 17:41 Dose: 10 mg Warfarin Sodium (Coumadin) 8 mg PO MoWeThSa@1600 [facility] Zolpidem Tartrate (Ambien) 5 mg PO HS PRN PRN Reason: INSOMNIA Allergies/Adverse Reactions: Allergies Allergy/AdvReac Type Severity Reaction Status Date / Time No Known Allergies Allergy Verified 05/22/18 22:31 Physical Exam Vital signs: Vital Signs 05/23/18 12:00 05/23/18 16:00 05/23/18 20:00 Temperature 96.3 F L 98.0 F 97.6 F Pulse Rate 64 61 59 L Respiratory Rate 16 17 20 Blood Pressure 137/65 155/74 H 133/64 Pulse Oximetry 94 L 95 96 05/23/18 20:06 05/24/18 00:00 05/24/18 04:00 Temperature 96.4 F L 96.7 F L Pulse Rate 60 60 Respiratory Rate 20 20 Blood Pressure 133/63 137/65 Pulse Oximetry 94 L 96 95 05/24/18 08:00 Temperature 97.0 F L Pulse Rate 63 Respiratory Rate 21 Blood Pressure 140/75 Pulse Oximetry 95 Intake & Output 05/23/18 05/24/18 05/24/18 18:59 06:59 18:59 Intake Total 720 / 720 970 / 970 240 / 240 Output Total 700 / 700 Balance 20 / 20 970 / 970 240 / 240 Weight 108.7 kg Intake: IV 250 / 250 Heparin/D5W 25,000 U/250 mL 25, 250 / 250 000 unit In 250 ml @ Per Protocol IV.CONT TITRATE PRN Rx #:[id number] Oral 720 / 720 720 / 720 240 / 240 Output: Urine 700 / 700 Other: # Voids 2 # Bowel Movements 1 - Routine Neurological Exam alert, speech normal Cn intact MOTOR 5/5 BUE and BLE, no drift. Objective Laboratory Results - last 24 hr 05/23/18 05/23/18 05/23/18 04:30 12:04 17:05 CBC w Diff WBC RBC Hgb Hct MCV MCH MCHC RDW Plt Count MPV Neut % (Auto) Lymph % (Auto) [place] % (Auto) Eos % (Auto) Baso % (Auto) Neut # (Auto) Lymph # (Auto) [place] # (Auto) Eos # (Auto) Baso # (Auto) WBC Differential Differential Comment PT INR APTT 44.3 H Sodium Potassium Chloride Carbon Dioxide Anion Gap BUN Creatinine Estimated GFR POC Glucose 58 L Random Glucose Calcium Triglycerides 57 Cholesterol 93 L LDL Cholesterol, Calc 47 HDL Cholesterol 35.0 L Cholesterol/HDL Ratio 2.65 05/23/18 05/23/18 05/23/18 17:25 17:25 17:40 CBC w Diff WBC RBC Hgb Hct MCV MCH MCHC RDW Plt Count MPV Neut % (Auto) Lymph % (Auto) [place] % (Auto) Eos % (Auto) Baso % (Auto) Neut # (Auto) Lymph # (Auto) [place] # (Auto) Eos # (Auto) Baso # (Auto) WBC Differential Differential Comment PT INR APTT 42.6 H Sodium Potassium Chloride Carbon Dioxide Anion Gap BUN Creatinine Estimated GFR POC Glucose 151 H Random Glucose 98 Calcium Triglycerides Cholesterol LDL Cholesterol, Calc HDL Cholesterol Cholesterol/HDL Ratio 05/23/18 05/24/18 05/24/18 22:52 04:53 04:53 CBC w Diff Auto diff final WBC 6.7 RBC 4.15 L Hgb 11.5 L Hct 36.0 L MCV 86.7 MCH 27.7 MCHC 32.0 RDW 16.1 Plt Count 113 L MPV 10.9 Neut % (Auto) 75.0 H Lymph % (Auto) 11.3 [place] % (Auto) 9.0 H Eos % (Auto) 4.1 H Baso % (Auto) 0.6 Neut # (Auto) 5.0 Lymph # (Auto) 0.8 L [place] # (Auto) 0.6 Eos # (Auto) 0.3 Baso # (Auto) 0.0 WBC Differential . Differential Comment . PT INR APTT 41.8 H Sodium Potassium Chloride Carbon Dioxide Anion Gap BUN Creatinine Estimated GFR POC Glucose 60 L Random Glucose Calcium Triglycerides Cholesterol LDL Cholesterol, Calc HDL Cholesterol Cholesterol/HDL Ratio 05/24/18 05/24/18 05/24/18 04:53 04:53 07:50 CBC w Diff WBC RBC Hgb Hct MCV MCH MCHC RDW Plt Count MPV Neut % (Auto) Lymph % (Auto) [place] % (Auto) Eos % (Auto) Baso % (Auto) Neut # (Auto) Lymph # (Auto) [place] # (Auto) Eos # (Auto) Baso # (Auto) WBC Differential Differential Comment PT 12.9 H INR 1.3 APTT Sodium 138 Potassium 4.0 Chloride 102 Carbon Dioxide 29.2 Anion Gap 7 BUN 30 H Creatinine 1.40 H Estimated GFR 49 L POC Glucose 109 Random Glucose 130 H Calcium 9.2 Triglycerides Cholesterol LDL Cholesterol, Calc HDL Cholesterol Cholesterol/HDL Ratio Microbiology 05/23/18 18:55 Stool Occult Blood (RAY) - Final Stool Hemoccult negative Review/Management - Diagnosis (1) CVA (cerebral vascular accident) Code(s): I63.9 - Cerebral infarction, unspecified Status: Acute Current Visit: Yes - Review/Management Plan: exam is stable. continue iv heparin with coumadin until INR >2. Ok to dc from neurology standpoint when INR between 2-3.
[2018-05-24] MEDS ORDERED: PROBENECID 500 MG PO SCH (09:00)
[2018-05-24] MEDS: Atropine 1% Opth Drops 2 ML Bottle LEFT EYE SCH ×2 (09:47→22:54)
[2018-05-24] MEDS: BRINZOLAMIDE BRIMONIDINE LEFT EYE SCH ×3 (09:48→18:34)
[2018-05-24] MEDS: Famotidine 20 MG Tablet PO SCH (09:51)
[2018-05-24] MEDS: Ferrous Sulfate 325 MG Tablet PO SCH ×2 (09:51→22:52)
--- NOTE | 2018-05-24 09:57 | P.PN ---
Subjective Interval history: Patient denies any chest pain, shortness of breath. He denies any further neurological symptoms. Physical Exam Vital signs: Vital Signs 05/23/18 12:00 05/23/18 16:00 05/23/18 20:00 Temperature 96.3 F L 98.0 F 97.6 F Pulse Rate 64 61 59 L Respiratory Rate 16 17 20 Blood Pressure 137/65 155/74 H 133/64 Pulse Oximetry 94 L 95 96 05/23/18 20:06 05/24/18 00:00 05/24/18 04:00 Temperature 96.4 F L 96.7 F L Pulse Rate 60 60 Respiratory Rate 20 20 Blood Pressure 133/63 137/65 Pulse Oximetry 94 L 96 95 05/24/18 08:00 Temperature 97.0 F L Pulse Rate 63 Respiratory Rate 21 Blood Pressure 140/75 Pulse Oximetry 95 Intake & Output 05/23/18 05/24/18 05/24/18 18:59 06:59 18:59 Intake Total 720 / 720 970 / 970 240 / 240 Output Total 700 / 700 Balance 20 / 20 970 / 970 240 / 240 Weight 108.7 kg Intake: IV 250 / 250 Heparin/D5W 25,000 U/250 mL 25, 250 / 250 000 unit In 250 ml @ Per Protocol IV.CONT TITRATE PRN Rx #:[id number] Oral 720 / 720 720 / 720 240 / 240 Output: Urine 700 / 700 Other: # Voids 2 # Bowel Movements 1 Narrative: This is a pleasant [] in no distress. HEENT: left pupil is dilated secondary to Atropine eye drops, EOMs intact, mouth without lesions Neck: No JVD, neck is supple Heart: Regular rate and rhythm. He has a grade 1/6 systolic murmur at the left mid sternal border Lungs: Clear to auscultation Abdomen: Soft, nontender, no masses Extremities: No edema, pulses palpated, no calf tenderness Neuro: Alert, oriented, normal motor exam, sensation intact. Cranial nerves intact other than left pupil dilated as mentioned above. Results - Labs CBC & Chem 7: 05/24/18 04:53 05/24/18 04:53 Laboratory Results - last 24 hr 05/23/18 05/23/18 05/23/18 04:30 12:04 17:05 CBC w Diff WBC RBC Hgb Hct MCV MCH MCHC RDW Plt Count MPV Neut % (Auto) Lymph % (Auto) [place] % (Auto) Eos % (Auto) Baso % (Auto) Neut # (Auto) Lymph # (Auto) [place] # (Auto) Eos # (Auto) Baso # (Auto) WBC Differential Differential Comment PT INR APTT 44.3 H Sodium Potassium Chloride Carbon Dioxide Anion Gap BUN Creatinine Estimated GFR POC Glucose 58 L Random Glucose Calcium Triglycerides 57 Cholesterol 93 L LDL Cholesterol, Calc 47 HDL Cholesterol 35.0 L Cholesterol/HDL Ratio 2.65 05/23/18 05/23/18 05/23/18 17:25 17:25 17:40 CBC w Diff WBC RBC Hgb Hct MCV MCH MCHC RDW Plt Count MPV Neut % (Auto) Lymph % (Auto) [place] % (Auto) Eos % (Auto) Baso % (Auto) Neut # (Auto) Lymph # (Auto) [place] # (Auto) Eos # (Auto) Baso # (Auto) WBC Differential Differential Comment PT INR APTT 42.6 H Sodium Potassium Chloride Carbon Dioxide Anion Gap BUN Creatinine Estimated GFR POC Glucose 151 H Random Glucose 98 Calcium Triglycerides Cholesterol LDL Cholesterol, Calc HDL Cholesterol Cholesterol/HDL Ratio 05/23/18 05/24/18 05/24/18 22:52 04:53 04:53 CBC w Diff Auto diff final WBC 6.7 RBC 4.15 L Hgb 11.5 L Hct 36.0 L MCV 86.7 MCH 27.7 MCHC 32.0 RDW 16.1 Plt Count 113 L MPV 10.9 Neut % (Auto) 75.0 H Lymph % (Auto) 11.3 [place] % (Auto) 9.0 H Eos % (Auto) 4.1 H Baso % (Auto) 0.6 Neut # (Auto) 5.0 Lymph # (Auto) 0.8 L [place] # (Auto) 0.6 Eos # (Auto) 0.3 Baso # (Auto) 0.0 WBC Differential . Differential Comment . PT INR APTT 41.8 H Sodium Potassium Chloride Carbon Dioxide Anion Gap BUN Creatinine Estimated GFR POC Glucose 60 L Random Glucose Calcium Triglycerides Cholesterol LDL Cholesterol, Calc HDL Cholesterol Cholesterol/HDL Ratio 05/24/18 05/24/18 05/24/18 04:53 04:53 07:50 CBC w Diff WBC RBC Hgb Hct MCV MCH MCHC RDW Plt Count MPV Neut % (Auto) Lymph % (Auto) [place] % (Auto) Eos % (Auto) Baso % (Auto) Neut # (Auto) Lymph # (Auto) [place] # (Auto) Eos # (Auto) Baso # (Auto) WBC Differential Differential Comment PT 12.9 H INR 1.3 APTT Sodium 138 Potassium 4.0 Chloride 102 Carbon Dioxide 29.2 Anion Gap 7 BUN 30 H Creatinine 1.40 H Estimated GFR 49 L POC Glucose 109 Random Glucose 130 H Calcium 9.2 Triglycerides Cholesterol LDL Cholesterol, Calc HDL Cholesterol Cholesterol/HDL Ratio Microbiology 05/23/18 18:55 Stool Stool Occult Blood (RAY) - Final Hemoccult negative Laboratory Results - last 48 hr 05/22/18 05/22/18 05/22/18 22:05 22:05 22:05 CBC w Diff Auto diff final WBC 8.2 RBC 4.28 L Hgb 11.8 L Hct 36.3 L MCV 84.8 MCH 27.5 MCHC 32.5 RDW 16.3 Plt Count 135 L MPV 10.8 Neut % (Auto) 74.6 H Lymph % (Auto) 8.9 L [place] % (Auto) 9.6 H Eos % (Auto) 4.0 Baso % (Auto) 2.9 H Neut # (Auto) 6.2 Lymph # (Auto) 0.7 L [place] # (Auto) 0.8 Eos # (Auto) 0.3 Baso # (Auto) 0.2 WBC Differential . Differential Comment . PT 12.7 H INR 1.3 APTT 28.3 Sodium 138 Potassium 4.2 Chloride 100 Carbon Dioxide 31.3 Anion Gap 7 BUN 36 H Creatinine 1.60 H Estimated GFR 42 L POC Glucose Random Glucose 97 Calcium 9.2 Total Creatine Kinase 142 CK-MB (CK-2) 2.6 Troponin I 0.02 Triglycerides Cholesterol LDL Cholesterol, Calc HDL Cholesterol Cholesterol/HDL Ratio Urine Color Urine Clarity Urine pH Ur Specific [place] Urine Protein Urine Glucose (UA) Urine Ketones Urine Occult Blood Urine Nitrate Urine Bilirubin Urine Urobilinogen Ur Leukocyte Esterase Urine RBC Urine WBC Ur Squamous Epith Cells Micro UA Comment Urine Culture Comments Blood Type Antibody Screen 05/22/18 05/23/18 05/23/18 22:05 00:30 04:30 CBC w Diff WBC RBC Hgb Hct MCV MCH MCHC RDW Plt Count MPV Neut % (Auto) Lymph % (Auto) [place] % (Auto) Eos % (Auto) Baso % (Auto) Neut # (Auto) Lymph # (Auto) [place] # (Auto) Eos # (Auto) Baso # (Auto) WBC Differential Differential Comment PT INR APTT 38.2 H D Sodium Potassium Chloride Carbon Dioxide Anion Gap BUN Creatinine Estimated GFR POC Glucose Random Glucose Calcium Total Creatine Kinase CK-MB (CK-2) Troponin I Triglycerides Cholesterol LDL Cholesterol, Calc HDL Cholesterol Cholesterol/HDL Ratio Urine Color Yellow Urine Clarity Clear Urine pH 7.5 Ur Specific [place] 1.010 Urine Protein Negative Urine Glucose (UA) Negative Urine Ketones Negative Urine Occult Blood Negative Urine Nitrate Negative Urine Bilirubin Negative Urine Urobilinogen 0.2 Ur Leukocyte Esterase Negative Urine RBC 0-3 Urine WBC 0-5 Ur Squamous Epith Cells 0-5 Micro UA Comment Culture not ind Urine Culture Comments Culture not ind Blood Type B Positive Antibody Screen Negative 05/23/18 05/23/18 05/23/18 04:30 04:30 04:30 CBC w Diff WBC 7.3 RBC 4.14 L Hgb 11.6 L Hct 35.7 L MCV 86.2 MCH 27.9 MCHC 32.4 RDW 16.0 Plt Count 120 L MPV 10.2 Neut % (Auto) Lymph % (Auto) [place] % (Auto) Eos % (Auto) Baso % (Auto) Neut # (Auto) Lymph # (Auto) [place] # (Auto) Eos # (Auto) Baso # (Auto) WBC Differential Differential Comment PT 13.6 H INR 1.3 APTT Sodium Potassium Chloride Carbon Dioxide Anion Gap BUN Creatinine Estimated GFR POC Glucose Random Glucose Calcium Total Creatine Kinase CK-MB (CK-2) Troponin I Triglycerides 57 Cholesterol 93 L LDL Cholesterol, Calc 47 HDL Cholesterol 35.0 L Cholesterol/HDL Ratio 2.65 Urine Color Urine Clarity Urine pH Ur Specific [place] Urine Protein Urine Glucose (UA) Urine Ketones Urine Occult Blood Urine Nitrate Urine Bilirubin Urine Urobilinogen Ur Leukocyte Esterase Urine RBC Urine WBC Ur Squamous Epith Cells Micro UA Comment Urine Culture Comments Blood Type Antibody Screen 05/23/18 05/23/18 05/23/18 08:28 12:04 17:05 CBC w Diff WBC RBC Hgb Hct MCV MCH MCHC RDW Plt Count MPV Neut % (Auto) Lymph % (Auto) [place] % (Auto) Eos % (Auto) Baso % (Auto) Neut # (Auto) Lymph # (Auto) [place] # (Auto) Eos # (Auto) Baso # (Auto) WBC Differential Differential Comment PT INR APTT 44.3 H Sodium Potassium Chloride Carbon Dioxide Anion Gap BUN Creatinine Estimated GFR POC Glucose 135 H 58 L Random Glucose Calcium Total Creatine Kinase CK-MB (CK-2) Troponin I Triglycerides Cholesterol LDL Cholesterol, Calc HDL Cholesterol Cholesterol/HDL Ratio Urine Color Urine Clarity Urine pH Ur Specific [place] Urine Protein Urine Glucose (UA) Urine Ketones Urine Occult Blood Urine Nitrate Urine Bilirubin Urine Urobilinogen Ur Leukocyte Esterase Urine RBC Urine WBC Ur Squamous Epith Cells Micro UA Comment Urine Culture Comments Blood Type Antibody Screen 05/23/18 05/23/18 05/23/18 17:25 17:25 17:40 CBC w Diff WBC RBC Hgb Hct MCV MCH MCHC RDW Plt Count MPV Neut % (Auto) Lymph % (Auto) [place] % (Auto) Eos % (Auto) Baso % (Auto) Neut # (Auto) Lymph # (Auto) [place] # (Auto) Eos # (Auto) Baso # (Auto) WBC Differential Differential Comment PT INR APTT 42.6 H Sodium Potassium Chloride Carbon Dioxide Anion Gap BUN Creatinine Estimated GFR POC Glucose 151 H Random Glucose 98 Calcium Total Creatine Kinase CK-MB (CK-2) Troponin I Triglycerides Cholesterol LDL Cholesterol, Calc HDL Cholesterol Cholesterol/HDL Ratio Urine Color Urine Clarity Urine pH Ur Specific [place] Urine Protein Urine Glucose (UA) Urine Ketones Urine Occult Blood Urine Nitrate Urine Bilirubin Urine Urobilinogen Ur Leukocyte Esterase Urine RBC Urine WBC Ur Squamous Epith Cells Micro UA Comment Urine Culture Comments Blood Type Antibody Screen 05/23/18 05/24/18 05/24/18 22:52 04:53 04:53 CBC w Diff Auto diff final WBC 6.7 RBC 4.15 L Hgb 11.5 L Hct 36.0 L MCV 86.7 MCH 27.7 MCHC 32.0 RDW 16.1 Plt Count 113 L MPV 10.9 Neut % (Auto) 75.0 H Lymph % (Auto) 11.3 [place] % (Auto) 9.0 H Eos % (Auto) 4.1 H Baso % (Auto) 0.6 Neut # (Auto) 5.0 Lymph # (Auto) 0.8 L [place] # (Auto) 0.6 Eos # (Auto) 0.3 Baso # (Auto) 0.0 WBC Differential . Differential Comment . PT INR APTT 41.8 H Sodium Potassium Chloride Carbon Dioxide Anion Gap BUN Creatinine Estimated GFR POC Glucose 60 L Random Glucose Calcium Total Creatine Kinase CK-MB (CK-2) Troponin I Triglycerides Cholesterol LDL Cholesterol, Calc HDL Cholesterol Cholesterol/HDL Ratio Urine Color Urine Clarity Urine pH Ur Specific [place] Urine Protein Urine Glucose (UA) Urine Ketones Urine Occult Blood Urine Nitrate Urine Bilirubin Urine Urobilinogen Ur Leukocyte Esterase Urine RBC Urine WBC Ur Squamous Epith Cells Micro UA Comment Urine Culture Comments Blood Type Antibody Screen 05/24/18 05/24/18 05/24/18 04:53 04:53 07:50 CBC w Diff WBC RBC Hgb Hct MCV MCH MCHC RDW Plt Count MPV Neut % (Auto) Lymph % (Auto) [place] % (Auto) Eos % (Auto) Baso % (Auto) Neut # (Auto) Lymph # (Auto) [place] # (Auto) Eos # (Auto) Baso # (Auto) WBC Differential Differential Comment PT 12.9 H INR 1.3 APTT Sodium 138 Potassium 4.0 Chloride 102 Carbon Dioxide 29.2 Anion Gap 7 BUN 30 H Creatinine 1.40 H Estimated GFR 49 L POC Glucose 109 Random Glucose 130 H Calcium 9.2 Total Creatine Kinase CK-MB (CK-2) Troponin I Triglycerides Cholesterol LDL Cholesterol, Calc HDL Cholesterol Cholesterol/HDL Ratio Urine Color Urine Clarity Urine pH Ur Specific [place] Urine Protein Urine Glucose (UA) Urine Ketones Urine Occult Blood Urine Nitrate Urine Bilirubin Urine Urobilinogen Ur Leukocyte Esterase Urine RBC Urine WBC Ur Squamous Epith Cells Micro UA Comment Urine Culture Comments Blood Type Antibody Screen - Imaging Chest X-Ray 05/22/18 22:04 CONCLUSION: 1. Blunting of the right costophrenic angle consistent with small effusion. 2. Moderate cardiomegaly with no perihilar edema. 3. Status post median sternotomy. Head CT 05/22/18 22:04 CONCLUSION: 1. Subcentimeter subacute or older lacunar infarct in the left periventricular white matter. No acute hemorrhage or mass effect. Report was called by [Dr. Villeda to Dr. Henderson at 10:23 PM ] Head CTA 05/22/18 22:04 CONCLUSION: 1. Examination within normal limits for age. Neck CTA 05/22/18 22:04 CONCLUSION: 1. Bilateral calcific plaquing in the carotid bulbs and internal carotid arteries with approximately 50% diameter stenosis. 2. Calcified plaque in the origin of the great vessels with no significant stenosis. 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 Code(s): E11.22 - Type 2 diabetes mellitus with diabetic chronic kidney disease Status: Chronic (3) Atrial fibrillation Code(s): I48.91 - Unspecified atrial fibrillation Status: Chronic (4) Hyperlipemia Code(s): E78.5 - Hyperlipidemia, unspecified Status: Chronic (5) HTN (hypertension) Code(s): I10 - Essential (primary) hypertension Status: Chronic (6) History of aortic valve stenosis Code(s): Z86.79 - Personal history of other diseases of the circulatory system Status: Resolved (7) History of sick sinus syndrome Code(s): Z86.79 - Personal history of other diseases of the circulatory system Status: Chronic (8) Obstructive sleep apnea Code(s): G47.33 - Obstructive sleep apnea (adult) (pediatric) Status: Chronic (9) Stage 3 chronic kidney disease Code(s): N18.3 - Chronic kidney disease, stage 3 (moderate) Status: Chronic (10) Status post transcatheter aortic valve replacement Code(s): Z95.2 - Presence of prosthetic heart valve Status: Chronic (11) COPD (chronic obstructive pulmonary disease) Code(s): J44.9 - Chronic obstructive pulmonary disease, unspecified Status: Chronic (12) Cardiac pacemaker Code(s): Z95.0 - Presence of cardiac pacemaker Status: Chronic (13) History of coronary artery bypass surgery Code(s): Z95.1 - Presence of aortocoronary bypass graft Status: Chronic (14) Hypothyroidism Code(s): E03.9 - Hypothyroidism, unspecified Status: Chronic - Plan Plan: Patient is still on a heparin drip until his INR is therapeutic on Warfarin. I ordered 10mg of Warfarin today because his INR is only 1.3. A 2D echocardiogram showed no thrombus. He is on warfarin and heparin which should cover him for DVT prophylaxis. He will be maintained on his regular medications.
[2018-05-24] MEDS: Insulin Aspart Prot 70/30 1,000 UNITS/10 ML Vial SQ SCH ×2 (14:49→18:03)
[2018-05-25] MEDS: prednisoLONE Acetate 1% Opth Susp 5 ML Bottle LEFT EYE SCH ×12 (02:35→23:37)
[2018-05-25] MEDS: Ofloxacin 0.3% Opth Drops 5 ML Bottle LEFT EYE SCH ×11 (02:35→23:36)
[2018-05-25] MEDS: Levothyroxine 88 MCG Tablet PO SCH (06:04)
[2018-05-25 06:31] LABS: Baso % (Auto) 0.7 % (0.0-2.0); Eos # (Auto) 0.3 th/mm3 (0.0-0.4); Eos % (Auto) 5.7 % (0.0-4.0); Hematocrit 35.7 % (39.0-51.0); Hemoglobin 11.5 gm/dL (13.0-17.0); Lymph # (Auto) 0.7 th/mm3 (1.0-4.8); Lymph % (Auto) 13.1 % (9.0-44.0); Mean Corpuscular HGB Conc 32.2 % (32.0-36.0); Mean Corpuscular Volume 86.8 fL (80.0-100.0); Mean Platelet Volume 10.3 fL (7.0-11.0); Mono # (Auto) 0.6 th/mm3 (0.0-0.9); Mono % (Auto) 10.7 % (0.0-8.0); Neut % (Auto) 69.8 % (16.0-70.0); Platelet Count 97 th/mm3 (150-450); Red Blood Count 4.11 mil/mm3 (4.50-5.90); Red Cell Distribution Width 16.3 % (11.6-17.2); White Blood Count 5.6 th/mm3 (4.0-11.0)
[2018-05-25 06:41] LABS: Potassium 4.2 meq/L (3.5-5.1)
[2018-05-25 06:47] LABS: INR 1.3 Ratio; Prothrombin Time 13.4 sec (9.8-11.6)
[2018-05-25 06:49] LABS: Calcium 9.2 mg/dL (8.5-10.1)
[2018-05-25 06:50] LABS: Carbon Dioxide 29.2 meq/L (21.0-32.0)
[2018-05-25 07:49] LABS: Ovalocytes 1+
[2018-05-25 07:50] LABS: Platelet Morphology Normal (Normal)
--- NOTE | 2018-05-25 07:54 | P.PN ---
Subjective Interval history: He has no complaints today. Physical Exam Vital signs: Vital Signs 05/24/18 08:00 05/24/18 12:00 05/24/18 15:58 Temperature 97.0 F L 98.4 F 98.9 F Pulse Rate 63 61 80 Respiratory Rate 21 20 20 Blood Pressure 140/75 139/66 118/71 Pulse Oximetry 95 96 95 05/24/18 20:00 05/25/18 00:00 05/25/18 04:00 Temperature 97.6 F 97 F L 98.2 F Pulse Rate 77 63 60 Respiratory Rate 20 20 20 Blood Pressure 156/80 H 137/65 132/62 Pulse Oximetry 97 96 Intake & Output 05/24/18 05/25/18 05/25/18 18:59 06:59 18:59 Intake Total 480 / 480 720 / 720 Output Total 400 / 400 Balance 80 / 80 720 / 720 Intake: IV 500 / 500 Oral 480 / 480 220 / 220 Output: Urine 400 / 400 Other: # Voids 2 Date of Last Bowel Movement 05/24/18 # Bowel Movements 1 Narrative: This is a pleasant [] in no distress. HEENT: left pupil is dilated secondary to Atropine eye drops, EOMs intact, mouth without lesions Neck: No JVD, neck is supple Heart: Regular rate and rhythm. He has a grade 1/6 systolic murmur at the left mid sternal border Lungs: Clear to auscultation Abdomen: Soft, nontender, no masses Extremities: No edema, pulses palpated, no calf tenderness Neuro: Alert, oriented, normal motor exam, sensation intact. Cranial nerves intact other than left pupil dilated as mentioned above. Results - Labs CBC & Chem 7: 05/25/18 05:56 05/25/18 05:56 Laboratory Results - last 24 hr 05/24/18 05/24/18 05/24/18 07:50 11:56 16:19 CBC w Diff WBC RBC Hgb Hct MCV MCH MCHC RDW Plt Count MPV Neut % (Auto) Lymph % (Auto) [place] % (Auto) Eos % (Auto) Baso % (Auto) Neut # (Auto) Lymph # (Auto) [place] # (Auto) Eos # (Auto) Baso # (Auto) WBC Differential Diff Scan Differential Comment Platelet Estimate Platelet Morphology Ovalocytes PT INR APTT Sodium Potassium Chloride Carbon Dioxide Anion Gap BUN Creatinine Estimated GFR POC Glucose 109 147 H 95 Random Glucose Calcium 05/24/18 05/25/18 05/25/18 22:50 05:56 05:56 CBC w Diff Slide review pending WBC 5.6 RBC 4.11 L Hgb 11.5 L Hct 35.7 L MCV 86.8 MCH 28.0 MCHC 32.2 RDW 16.3 Plt Count 97 L MPV 10.3 Neut % (Auto) 69.8 Lymph % (Auto) 13.1 [place] % (Auto) 10.7 H Eos % (Auto) 5.7 H Baso % (Auto) 0.7 Neut # (Auto) 4.0 Lymph # (Auto) 0.7 L [place] # (Auto) 0.6 Eos # (Auto) 0.3 Baso # (Auto) 0.0 WBC Differential . Diff Scan Auto diff confirmed Differential Comment . Platelet Estimate Low L Platelet Morphology Normal Ovalocytes 1+ H PT INR APTT Sodium 139 Potassium 4.2 Chloride 102 Carbon Dioxide 29.2 Anion Gap 8 BUN 27 H Creatinine 1.40 H Estimated GFR 49 L POC Glucose 67 L Random Glucose 121 H Calcium 9.2 05/25/18 05/25/18 05:56 05:56 CBC w Diff WBC RBC Hgb Hct MCV MCH MCHC RDW Plt Count MPV Neut % (Auto) Lymph % (Auto) [place] % (Auto) Eos % (Auto) Baso % (Auto) Neut # (Auto) Lymph # (Auto) [place] # (Auto) Eos # (Auto) Baso # (Auto) WBC Differential Diff Scan Differential Comment Platelet Estimate Platelet Morphology Ovalocytes PT 13.4 H INR 1.3 APTT 44.9 H Sodium Potassium Chloride Carbon Dioxide Anion Gap BUN Creatinine Estimated GFR POC Glucose Random Glucose Calcium Microbiology 05/23/18 18:55 Stool Stool Occult Blood (RAY) - Final Hemoccult negative Laboratory Results - last 48 hr 05/23/18 05/23/18 05/23/18 04:30 04:30 08:28 CBC w Diff WBC RBC Hgb Hct MCV MCH MCHC RDW Plt Count MPV Neut % (Auto) Lymph % (Auto) [place] % (Auto) Eos % (Auto) Baso % (Auto) Neut # (Auto) Lymph # (Auto) [place] # (Auto) Eos # (Auto) Baso # (Auto) WBC Differential Diff Scan Differential Comment Platelet Estimate Platelet Morphology Ovalocytes PT 13.6 H INR 1.3 APTT Sodium Potassium Chloride Carbon Dioxide Anion Gap BUN Creatinine Estimated GFR POC Glucose 135 H Random Glucose Calcium Triglycerides 57 Cholesterol 93 L LDL Cholesterol, Calc 47 HDL Cholesterol 35.0 L Cholesterol/HDL Ratio 2.65 05/23/18 05/23/18 05/23/18 12:04 17:05 17:25 CBC w Diff WBC RBC Hgb Hct MCV MCH MCHC RDW Plt Count MPV Neut % (Auto) Lymph % (Auto) [place] % (Auto) Eos % (Auto) Baso % (Auto) Neut # (Auto) Lymph # (Auto) [place] # (Auto) Eos # (Auto) Baso # (Auto) WBC Differential Diff Scan Differential Comment Platelet Estimate Platelet Morphology Ovalocytes PT INR APTT 44.3 H 42.6 H Sodium Potassium Chloride Carbon Dioxide Anion Gap BUN Creatinine Estimated GFR POC Glucose 58 L Random Glucose Calcium Triglycerides Cholesterol LDL Cholesterol, Calc HDL Cholesterol Cholesterol/HDL Ratio 05/23/18 05/23/18 05/23/18 17:25 17:40 22:52 CBC w Diff WBC RBC Hgb Hct MCV MCH MCHC RDW Plt Count MPV Neut % (Auto) Lymph % (Auto) [place] % (Auto) Eos % (Auto) Baso % (Auto) Neut # (Auto) Lymph # (Auto) [place] # (Auto) Eos # (Auto) Baso # (Auto) WBC Differential Diff Scan Differential Comment Platelet Estimate Platelet Morphology Ovalocytes PT INR APTT Sodium Potassium Chloride Carbon Dioxide Anion Gap BUN Creatinine Estimated GFR POC Glucose 151 H 60 L Random Glucose 98 Calcium Triglycerides Cholesterol LDL Cholesterol, Calc HDL Cholesterol Cholesterol/HDL Ratio 05/24/18 05/24/18 05/24/18 04:53 04:53 04:53 CBC w Diff Auto diff final WBC 6.7 RBC 4.15 L Hgb 11.5 L Hct 36.0 L MCV 86.7 MCH 27.7 MCHC 32.0 RDW 16.1 Plt Count 113 L MPV 10.9 Neut % (Auto) 75.0 H Lymph % (Auto) 11.3 [place] % (Auto) 9.0 H Eos % (Auto) 4.1 H Baso % (Auto) 0.6 Neut # (Auto) 5.0 Lymph # (Auto) 0.8 L [place] # (Auto) 0.6 Eos # (Auto) 0.3 Baso # (Auto) 0.0 WBC Differential . Diff Scan Differential Comment . Platelet Estimate Platelet Morphology Ovalocytes PT INR APTT 41.8 H Sodium 138 Potassium 4.0 Chloride 102 Carbon Dioxide 29.2 Anion Gap 7 BUN 30 H Creatinine 1.40 H Estimated GFR 49 L POC Glucose Random Glucose 130 H Calcium 9.2 Triglycerides Cholesterol LDL Cholesterol, Calc HDL Cholesterol Cholesterol/HDL Ratio 05/24/18 05/24/18 05/24/18 04:53 07:50 11:56 CBC w Diff WBC RBC Hgb Hct MCV MCH MCHC RDW Plt Count MPV Neut % (Auto) Lymph % (Auto) [place] % (Auto) Eos % (Auto) Baso % (Auto) Neut # (Auto) Lymph # (Auto) [place] # (Auto) Eos # (Auto) Baso # (Auto) WBC Differential Diff Scan Differential Comment Platelet Estimate Platelet Morphology Ovalocytes PT 12.9 H INR 1.3 APTT Sodium Potassium Chloride Carbon Dioxide Anion Gap BUN Creatinine Estimated GFR POC Glucose 109 147 H Random Glucose Calcium Triglycerides Cholesterol LDL Cholesterol, Calc HDL Cholesterol Cholesterol/HDL Ratio 05/24/18 05/24/18 05/25/18 16:19 22:50 05:56 CBC w Diff Slide review pending WBC 5.6 RBC 4.11 L Hgb 11.5 L Hct 35.7 L MCV 86.8 MCH 28.0 MCHC 32.2 RDW 16.3 Plt Count 97 L MPV 10.3 Neut % (Auto) 69.8 Lymph % (Auto) 13.1 [place] % (Auto) 10.7 H Eos % (Auto) 5.7 H Baso % (Auto) 0.7 Neut # (Auto) 4.0 Lymph # (Auto) 0.7 L [place] # (Auto) 0.6 Eos # (Auto) 0.3 Baso # (Auto) 0.0 WBC Differential . Diff Scan Auto diff confirmed Differential Comment . Platelet Estimate Low L Platelet Morphology Normal Ovalocytes 1+ H PT INR APTT Sodium Potassium Chloride Carbon Dioxide Anion Gap BUN Creatinine Estimated GFR POC Glucose 95 67 L Random Glucose Calcium Triglycerides Cholesterol LDL Cholesterol, Calc HDL Cholesterol Cholesterol/HDL Ratio 05/25/18 05/25/18 05/25/18 05:56 05:56 05:56 CBC w Diff WBC RBC Hgb Hct MCV MCH MCHC RDW Plt Count MPV Neut % (Auto) Lymph % (Auto) [place] % (Auto) Eos % (Auto) Baso % (Auto) Neut # (Auto) Lymph # (Auto) [place] # (Auto) Eos # (Auto) Baso # (Auto) WBC Differential Diff Scan Differential Comment Platelet Estimate Platelet Morphology Ovalocytes PT 13.4 H INR 1.3 APTT 44.9 H Sodium 139 Potassium 4.2 Chloride 102 Carbon Dioxide 29.2 Anion Gap 8 BUN 27 H Creatinine 1.40 H Estimated GFR 49 L POC Glucose Random Glucose 121 H Calcium 9.2 Triglycerides Cholesterol LDL Cholesterol, Calc HDL Cholesterol Cholesterol/HDL Ratio 05/25/18 07:51 CBC w Diff WBC RBC Hgb Hct MCV MCH MCHC RDW Plt Count MPV Neut % (Auto) Lymph % (Auto) [place] % (Auto) Eos % (Auto) Baso % (Auto) Neut # (Auto) Lymph # (Auto) [place] # (Auto) Eos # (Auto) Baso # (Auto) WBC Differential Diff Scan Differential Comment Platelet Estimate Platelet Morphology Ovalocytes PT INR APTT Sodium Potassium Chloride Carbon Dioxide Anion Gap BUN Creatinine Estimated GFR POC Glucose 114 H Random Glucose Calcium Triglycerides Cholesterol LDL Cholesterol, Calc HDL Cholesterol Cholesterol/HDL Ratio - Imaging Chest X-Ray 05/22/18 22:04 CONCLUSION: 1. Blunting of the right costophrenic angle consistent with small effusion. 2. Moderate cardiomegaly with no perihilar edema. 3. Status post median sternotomy. Head CT 05/22/18 22:04 CONCLUSION: 1. Subcentimeter subacute or older lacunar infarct in the left periventricular white matter. No acute hemorrhage or mass effect. Report was called by [Dr. Villeda to Dr. Henderson at 10:23 PM ] Head CTA 05/22/18 22:04 CONCLUSION: 1. Examination within normal limits for age. Neck CTA 05/22/18 22:04 CONCLUSION: 1. Bilateral calcific plaquing in the carotid bulbs and internal carotid arteries with approximately 50% diameter stenosis. 2. Calcified plaque in the origin of the great vessels with no significant stenosis. 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 Code(s): E11.22 - Type 2 diabetes mellitus with diabetic chronic kidney disease Status: Chronic (3) Atrial fibrillation Code(s): I48.91 - Unspecified atrial fibrillation Status: Chronic (4) Hyperlipemia Code(s): E78.5 - Hyperlipidemia, unspecified Status: Chronic (5) HTN (hypertension) Code(s): I10 - Essential (primary) hypertension Status: Chronic (6) History of aortic valve stenosis Code(s): Z86.79 - Personal history of other diseases of the circulatory system Status: Resolved (7) History of sick sinus syndrome Code(s): Z86.79 - Personal history of other diseases of the circulatory system Status: Chronic (8) Obstructive sleep apnea Code(s): G47.33 - Obstructive sleep apnea (adult) (pediatric) Status: Chronic (9) Stage 3 chronic kidney disease Code(s): N18.3 - Chronic kidney disease, stage 3 (moderate) Status: Chronic (10) Status post transcatheter aortic valve replacement Code(s): Z95.2 - Presence of prosthetic heart valve Status: Chronic (11) COPD (chronic obstructive pulmonary disease) Code(s): J44.9 - Chronic obstructive pulmonary disease, unspecified Status: Chronic (12) Cardiac pacemaker Code(s): Z95.0 - Presence of cardiac pacemaker Status: Chronic (13) History of coronary artery bypass surgery Code(s): Z95.1 - Presence of aortocoronary bypass graft Status: Chronic (14) Hypothyroidism Code(s): E03.9 - Hypothyroidism, unspecified Status: Chronic - Plan Plan: Patient is still on a heparin drip until his INR is therapeutic on Warfarin. I ordered 15mg of Warfarin today because his INR is only 1.3. A 2D echocardiogram showed no thrombus. He is on warfarin and heparin which should cover him for DVT prophylaxis. He will be maintained on his regular medications.
[2018-05-25] MEDS: Insulin Aspart Prot 70/30 1,000 UNITS/10 ML Vial SQ SCH ×2 (08:52→17:23)
[2018-05-25] MEDS: Ferrous Sulfate 325 MG Tablet PO SCH ×2 (08:53→21:20)
[2018-05-25] MEDS: Famotidine 20 MG Tablet PO SCH (08:53)
[2018-05-25] MEDS: Atropine 1% Opth Drops 2 ML Bottle LEFT EYE SCH ×2 (08:55→21:22)
[2018-05-25] MEDS: BRINZOLAMIDE BRIMONIDINE LEFT EYE SCH ×3 (08:56→18:00)
[2018-05-25] MEDS: Heparin Drip 25,000 UNIT/250 ML BAG IV.CONT PRN (11:33)
[2018-05-26] MEDS: Ofloxacin 0.3% Opth Drops 5 ML Bottle LEFT EYE SCH ×6 (03:53→13:19)
[2018-05-26] MEDS: prednisoLONE Acetate 1% Opth Susp 5 ML Bottle LEFT EYE SCH ×7 (03:53→13:19)
[2018-05-26] MEDS: Levothyroxine 88 MCG Tablet PO SCH (07:02)
[2018-05-26] MEDS: Insulin Aspart Prot 70/30 1,000 UNITS/10 ML Vial SQ SCH (07:45)
[2018-05-26 08:45] LABS: INR 1.4 Ratio; Prothrombin Time 14.6 sec (9.8-11.6)
--- NOTE | 2018-05-26 09:15 | P.PN ---
Subjective Interval history: No complaints. No shortness of breath. No neuro symptoms. Physical Exam Vital signs: Vital Signs 05/25/18 12:00 05/25/18 16:00 05/25/18 20:00 Temperature 98.4 F 97.1 F L 97.4 F L Pulse Rate 60 63 60 Respiratory Rate 20 20 18 Blood Pressure 142/69 H 145/72 H 147/69 H Pulse Oximetry 93 L 93 L 97 05/26/18 00:00 05/26/18 04:00 Temperature 97.3 F L 97.8 F Pulse Rate 60 64 Respiratory Rate 18 16 Blood Pressure 127/79 146/78 H Pulse Oximetry 95 96 Intake & Output 05/25/18 05/26/18 05/26/18 18:59 06:59 18:59 Intake Total 1061 / 1061 Balance 1061 / 1061 Weight 109.7 kg Intake: Oral 1061 / 1061 Other: # Voids 4 4 Date of Last Bowel Movement 05/25/18 05/25/18 # Bowel Movements 0 Narrative: This is a pleasant [] in no distress. HEENT: left pupil is dilated secondary to Atropine eye drops, EOMs intact, mouth without lesions Neck: No JVD, neck is supple Heart: Regular rate and rhythm. He has a grade 1/6 systolic murmur at the left mid sternal border Lungs: Clear to auscultation Abdomen: Soft, nontender, no masses Extremities: No edema, pulses palpated, no calf tenderness Neuro: Alert, oriented, normal motor exam, sensation intact. Cranial nerves intact other than left pupil dilated as mentioned above. Results - Labs CBC & Chem 7: 05/25/18 05:56 05/25/18 05:56 Laboratory Results - last 24 hr 05/25/18 05/25/18 05/26/18 10:53 16:44 06:30 PT INR APTT 44.7 H POC Glucose 140 H 183 H 05/26/18 05/26/18 06:30 07:30 PT 14.6 H INR 1.4 APTT POC Glucose 119 H Laboratory Results - last 48 hr 05/24/18 05/24/18 05/24/18 11:56 16:19 22:50 CBC w Diff WBC RBC Hgb Hct MCV MCH MCHC RDW Plt Count MPV Neut % (Auto) Lymph % (Auto) [place] % (Auto) Eos % (Auto) Baso % (Auto) Neut # (Auto) Lymph # (Auto) [place] # (Auto) Eos # (Auto) Baso # (Auto) WBC Differential Diff Scan Differential Comment Platelet Estimate Platelet Morphology Ovalocytes PT INR APTT Sodium Potassium Chloride Carbon Dioxide Anion Gap BUN Creatinine Estimated GFR POC Glucose 147 H 95 67 L Random Glucose Calcium 05/25/18 05/25/18 05/25/18 05:56 05:56 05:56 CBC w Diff Slide review pending WBC 5.6 RBC 4.11 L Hgb 11.5 L Hct 35.7 L MCV 86.8 MCH 28.0 MCHC 32.2 RDW 16.3 Plt Count 97 L MPV 10.3 Neut % (Auto) 69.8 Lymph % (Auto) 13.1 [place] % (Auto) 10.7 H Eos % (Auto) 5.7 H Baso % (Auto) 0.7 Neut # (Auto) 4.0 Lymph # (Auto) 0.7 L [place] # (Auto) 0.6 Eos # (Auto) 0.3 Baso # (Auto) 0.0 WBC Differential . Diff Scan Auto diff confirmed Differential Comment . Platelet Estimate Low L Platelet Morphology Normal Ovalocytes 1+ H PT 13.4 H INR 1.3 APTT Sodium 139 Potassium 4.2 Chloride 102 Carbon Dioxide 29.2 Anion Gap 8 BUN 27 H Creatinine 1.40 H Estimated GFR 49 L POC Glucose Random Glucose 121 H Calcium 9.2 05/25/18 05/25/18 05/25/18 05:56 07:51 10:53 CBC w Diff WBC RBC Hgb Hct MCV MCH MCHC RDW Plt Count MPV Neut % (Auto) Lymph % (Auto) [place] % (Auto) Eos % (Auto) Baso % (Auto) Neut # (Auto) Lymph # (Auto) [place] # (Auto) Eos # (Auto) Baso # (Auto) WBC Differential Diff Scan Differential Comment Platelet Estimate Platelet Morphology Ovalocytes PT INR APTT 44.9 H Sodium Potassium Chloride Carbon Dioxide Anion Gap BUN Creatinine Estimated GFR POC Glucose 114 H 140 H Random Glucose Calcium 05/25/18 05/26/18 05/26/18 16:44 06:30 06:30 CBC w Diff WBC RBC Hgb Hct MCV MCH MCHC RDW Plt Count MPV Neut % (Auto) Lymph % (Auto) [place] % (Auto) Eos % (Auto) Baso % (Auto) Neut # (Auto) Lymph # (Auto) [place] # (Auto) Eos # (Auto) Baso # (Auto) WBC Differential Diff Scan Differential Comment Platelet Estimate Platelet Morphology Ovalocytes PT 14.6 H INR 1.4 APTT 44.7 H Sodium Potassium Chloride Carbon Dioxide Anion Gap BUN Creatinine Estimated GFR POC Glucose 183 H Random Glucose Calcium 05/26/18 07:30 CBC w Diff WBC RBC Hgb Hct MCV MCH MCHC RDW Plt Count MPV Neut % (Auto) Lymph % (Auto) [place] % (Auto) Eos % (Auto) Baso % (Auto) Neut # (Auto) Lymph # (Auto) [place] # (Auto) Eos # (Auto) Baso # (Auto) WBC Differential Diff Scan Differential Comment Platelet Estimate Platelet Morphology Ovalocytes PT INR APTT Sodium Potassium Chloride Carbon Dioxide Anion Gap BUN Creatinine Estimated GFR POC Glucose 119 H Random Glucose Calcium - Imaging Chest X-Ray 05/22/18 22:04 CONCLUSION: 1. Blunting of the right costophrenic angle consistent with small effusion. 2. Moderate cardiomegaly with no perihilar edema. 3. Status post median sternotomy. Head CT 05/22/18 22:04 CONCLUSION: 1. Subcentimeter subacute or older lacunar infarct in the left periventricular white matter. No acute hemorrhage or mass effect. Report was called by [Dr. Villeda to Dr. Henderson at 10:23 PM ] Head CTA 05/22/18 22:04 CONCLUSION: 1. Examination within normal limits for age. Neck CTA 05/22/18 22:04 CONCLUSION: 1. Bilateral calcific plaquing in the carotid bulbs and internal carotid arteries with approximately 50% diameter stenosis. 2. Calcified plaque in the origin of the great vessels with no significant stenosis. 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 Code(s): E11.22 - Type 2 diabetes mellitus with diabetic chronic kidney disease Status: Chronic (3) Atrial fibrillation Code(s): I48.91 - Unspecified atrial fibrillation Status: Chronic (4) Hyperlipemia Code(s): E78.5 - Hyperlipidemia, unspecified Status: Chronic (5) HTN (hypertension) Code(s): I10 - Essential (primary) hypertension Status: Chronic (6) History of aortic valve stenosis Code(s): Z86.79 - Personal history of other diseases of the circulatory system Status: Resolved (7) History of sick sinus syndrome Code(s): Z86.79 - Personal history of other diseases of the circulatory system Status: Chronic (8) Obstructive sleep apnea Code(s): G47.33 - Obstructive sleep apnea (adult) (pediatric) Status: Chronic (9) Stage 3 chronic kidney disease Code(s): N18.3 - Chronic kidney disease, stage 3 (moderate) Status: Chronic (10) Status post transcatheter aortic valve replacement Code(s): Z95.2 - Presence of prosthetic heart valve Status: Chronic (11) COPD (chronic obstructive pulmonary disease) Code(s): J44.9 - Chronic obstructive pulmonary disease, unspecified Status: Chronic (12) Cardiac pacemaker Code(s): Z95.0 - Presence of cardiac pacemaker Status: Chronic (13) History of coronary artery bypass surgery Code(s): Z95.1 - Presence of aortocoronary bypass graft Status: Chronic (14) Hypothyroidism Code(s): E03.9 - Hypothyroidism, unspecified Status: Chronic - Plan Plan: Patient is still on a heparin drip until his INR is therapeutic on Warfarin. I ordered 15mg of Warfarin today because his INR still not therapeutic. A 2D echocardiogram showed no thrombus. He is on warfarin and heparin which should cover him for DVT prophylaxis. He will be maintained on his regular medications.
[2018-05-26] MEDS: Atropine 1% Opth Drops 2 ML Bottle LEFT EYE SCH (09:31)
[2018-05-26] MEDS: Famotidine 20 MG Tablet PO SCH (09:32)
[2018-05-26] MEDS: BRINZOLAMIDE BRIMONIDINE LEFT EYE SCH ×2 (09:32→13:19)
[2018-05-26] MEDS ORDERED: Enoxaparin Inj 120 MG/0.8 ML Syringe SQ SCH (10:00)
--- NOTE | 2018-05-26 11:39 | P.DS ---
Date of admission: 05/22/18 23:46 Primary care physician: Rajat Conde MD Attending physician on discharge: Alan Dillon Anticipated date of discharge: 05/26/18 Brief History from admission: HPI: This is a pleasant 77-year-old white male who came to the emergency room last evening after experiencing trouble with his speech and difficulty getting his words out. He was noted at the ER to have some subtle right lower extremity weakness as well. He has atrial fibrillation and a pacemaker and has been on warfarin. He however had been off his warfarin recently for an eye procedure and had a cataract extraction of the left eye in early April and had some complications with the lens and had another procedure. He had been off his warfarin and was only back on it for the last 4 days and when he came to the emergency room his INR was only 1.3. He is also scheduled for another eye procedure this week. In the ER a CT brain scan showed a small area of low attenuation in the left periventricular white matter suggestive of a subacute stroke versus a more chronic process. The ER physician discussed these findings with a neurologist, Dr. Darian Espinoza, last evening and he recommended putting the patient on heparin drip without a bolus. A CTA of the brain was within normal limits. A CTA of the neck just showed some bilateral plaque at approximately 50% stenosis of the carotid arteries. I saw the patient early this morning and states his symptoms had resolved. I did not note any difficulty with him saying his words or any dysarthria. He is to be maintained on heparin until his warfarin dosing achieve an INR between 2.0 and 3.0. Medical history: Type 2 diabetes mellitus with nephropathy, chronic kidney disease, neuropathy Hypertension Hyperlipidemia Hypothyroidism Stage III chronic kidney disease Mild COPD Obstructive sleep apnea on CPAP Atrial fibrillation on warfarin Permanent pacemaker placement 11/23/2017 History of severe aortic stenosis with TAVR on 12/12/2017 History of diastolic heart failure that improved after aortic valve surgery Coronary artery disease with prior 3 vessel CABG in 2003. A cardiac cath on showed significant calcification of the proximal and mid left circumflex with totally occluded mid LAD and totally occluded proximal RCA. There was a patent SVG to the mid RCA, a patent SVG Y graft to the mid circumflex obtuse marginal and distal PLV, a patent SMITH to the mid to distal LAD of the left circumflex History of gout History of colon polyps Carotid artery disease as mentioned based on CTA of the neck just done History of sick sinus syndrome DS: Diagnosis - Discharge Diagnosis (1) Acute CVA (cerebrovascular accident) Status: Acute Diagnosis: Principal (2) Type 2 diabetes mellitus with chronic kidney disease Status: Chronic Diagnosis: Secondary (3) Atrial fibrillation Status: Chronic Diagnosis: Secondary (4) Hyperlipemia Status: Chronic Diagnosis: Secondary (5) HTN (hypertension) Status: Chronic Diagnosis: Secondary (6) History of aortic valve stenosis Status: Resolved Diagnosis: Secondary (7) History of sick sinus syndrome Status: Chronic Diagnosis: Secondary (8) Obstructive sleep apnea Status: Chronic Diagnosis: Secondary (9) Stage 3 chronic kidney disease Status: Chronic Diagnosis: Secondary (10) Status post transcatheter aortic valve replacement Status: Chronic Diagnosis: Secondary (11) COPD (chronic obstructive pulmonary disease) Status: Chronic Diagnosis: Secondary (12) Cardiac pacemaker Status: Chronic Diagnosis: Secondary (13) History of coronary artery bypass surgery Status: Chronic Diagnosis: Secondary (14) Hypothyroidism Status: Chronic Diagnosis: Secondary DS: Medications - Discharge Medications Prescriptions: enoxaparin [Lovenox] 120 mg SUB-Q Q12HR #20 ml DS: Summary Hospital Course: Patient was admitted to the hospital and started on a heparin drip by the neurologist. He was seen in the ER in the evening of 05/22/2018 and by the next morning his neurological symptoms appeared to have resolved when I saw him. His CTA of the brain was within normal limits. A CTA of the neck showed bilateral calcified plaque in the carotid arteries but only about 50% stenosis bilaterally. His CT brain scan showed a very small area of low attenuation in the left periventricular white matter representing a subacute stroke. No hemorrhage was identified. A 2D echo showed no evidence for a mural thrombus. Patient's INR on admission was subtherapeutic which likely contributed to his acute neurological symptoms. He was restarted on warfarin but his INR has not been going up very much and was only 1.4 on 05/26/2018 so I changed his heparin drip to Lovenox SQ so that his Coumadin can be continued and adjusted at home. He will go home on Lovenox 120 mg every 12 hours and continue his warfarin at 8 mg 5 days a week and 10 mg 2 days a week. When his INR is between 2.0 and 3.0 his Lovenox can be stopped. He will check a PT/INR on 05/29/2018. He is instructed to follow up with Dr. Conde within 1 week and with the neurologist within 1-2 weeks. His routine home medications otherwise have not been changed. - Time Spent with Patient Total time spent providing and/or coordinating discharge services: Greater than 30 minutes - Quality: Stroke Last date observed well: 05/22/18 Last time observed well: 18:30 - Quality: VTE Deep Vein Thrombosis/Pulmonary Embolism Present on Admission: No Exam Vital signs: Vital Signs 05/25/18 12:00 05/25/18 16:00 05/25/18 20:00 Temperature 98.4 F 97.1 F L 97.4 F L Pulse Rate 60 63 60 Respiratory Rate 20 20 18 Blood Pressure 142/69 H 145/72 H 147/69 H Pulse Oximetry 93 L 93 L 97 05/26/18 00:00 05/26/18 04:00 05/26/18 08:00 Temperature 97.3 F L 97.8 F 97.4 F L Pulse Rate 60 64 66 Respiratory Rate 18 16 18 Blood Pressure 127/79 146/78 H 136/70 Pulse Oximetry 95 96 95 Intake & Output 05/25/18 05/26/18 05/26/18 18:59 06:59 18:59 Intake Total 1061 / 1061 Balance 1061 / 1061 Weight 109.7 kg Intake: Oral 1061 / 1061 Other: # Voids 4 4 Date of Last Bowel Movement 05/25/18 05/25/18 # Bowel Movements 0 Narrative: Exam: This is a pleasant white male in no distress. HEENT: His left pupil is dilated secondary to Atropine eye drops he is on, EOMs intact, mouth without lesions Neck: No JVD, neck is supple Heart: Regular rate and rhythm with a grade 1/6 systolic murmur at the left sternal border Lungs: Clear to auscultation Abdomen: Soft, nontender, no masses Extremities: No edema, pulses palpated, no calf tenderness Neuro: Alert, oriented, normal motor exam, sensation intact, cranial nerves intact other than the left pupil is dilated as mentioned above. Results Procedures completed during hospitalization: None Completed studies during hospitalization: Laboratory Tests 05/22/18 05/22/18 05/22/18 22:05 22:05 22:05 CBC w Diff Auto diff final WBC 8.2 RBC 4.28 L Hgb 11.8 L Hct 36.3 L MCV 84.8 MCH 27.5 MCHC 32.5 RDW 16.3 Plt Count 135 L MPV 10.8 Neut % (Auto) 74.6 H Lymph % (Auto) 8.9 L [place] % (Auto) 9.6 H Eos % (Auto) 4.0 Baso % (Auto) 2.9 H Neut # (Auto) 6.2 Lymph # (Auto) 0.7 L [place] # (Auto) 0.8 Eos # (Auto) 0.3 Baso # (Auto) 0.2 WBC Differential . Diff Scan Differential Comment . Platelet Estimate Platelet Morphology Ovalocytes PT 12.7 H INR 1.3 APTT 28.3 Sodium 138 Potassium 4.2 Chloride 100 Carbon Dioxide 31.3 Anion Gap 7 BUN 36 H Creatinine 1.60 H Estimated GFR 42 L POC Glucose Random Glucose 97 Calcium 9.2 Total Creatine Kinase 142 CK-MB (CK-2) 2.6 Troponin I 0.02 Triglycerides Cholesterol LDL Cholesterol, Calc HDL Cholesterol Cholesterol/HDL Ratio Urine Color Urine Clarity Urine pH Ur Specific [place] Urine Protein Urine Glucose (UA) Urine Ketones Urine Occult Blood Urine Nitrate Urine Bilirubin Urine Urobilinogen Ur Leukocyte Esterase Urine RBC Urine WBC Ur Squamous Epith Cells Micro UA Comment Urine Culture Comments Blood Type Antibody Screen 05/22/18 05/23/18 05/23/18 22:05 00:30 04:30 CBC w Diff WBC RBC Hgb Hct MCV MCH MCHC RDW Plt Count MPV Neut % (Auto) Lymph % (Auto) [place] % (Auto) Eos % (Auto) Baso % (Auto) Neut # (Auto) Lymph # (Auto) [place] # (Auto) Eos # (Auto) Baso # (Auto) WBC Differential Diff Scan Differential Comment Platelet Estimate Platelet Morphology Ovalocytes PT INR APTT 38.2 H D Sodium Potassium Chloride Carbon Dioxide Anion Gap BUN Creatinine Estimated GFR POC Glucose Random Glucose Calcium Total Creatine Kinase CK-MB (CK-2) Troponin I Triglycerides Cholesterol LDL Cholesterol, Calc HDL Cholesterol Cholesterol/HDL Ratio Urine Color Yellow Urine Clarity Clear Urine pH 7.5 Ur Specific [place] 1.010 Urine Protein Negative Urine Glucose (UA) Negative Urine Ketones Negative Urine Occult Blood Negative Urine Nitrate Negative Urine Bilirubin Negative Urine Urobilinogen 0.2 Ur Leukocyte Esterase Negative Urine RBC 0-3 Urine WBC 0-5 Ur Squamous Epith Cells 0-5 Micro UA Comment Culture not ind Urine Culture Comments Culture not ind Blood Type B Positive Antibody Screen Negative 05/23/18 05/23/18 05/23/18 04:30 04:30 04:30 CBC w Diff WBC 7.3 RBC 4.14 L Hgb 11.6 L Hct 35.7 L MCV 86.2 MCH 27.9 MCHC 32.4 RDW 16.0 Plt Count 120 L MPV 10.2 Neut % (Auto) Lymph % (Auto) [place] % (Auto) Eos % (Auto) Baso % (Auto) Neut # (Auto) Lymph # (Auto) [place] # (Auto) Eos # (Auto) Baso # (Auto) WBC Differential Diff Scan Differential Comment Platelet Estimate Platelet Morphology Ovalocytes PT 13.6 H INR 1.3 APTT Sodium Potassium Chloride Carbon Dioxide Anion Gap BUN Creatinine Estimated GFR POC Glucose Random Glucose Calcium Total Creatine Kinase CK-MB (CK-2) Troponin I Triglycerides 57 Cholesterol 93 L LDL Cholesterol, Calc 47 HDL Cholesterol 35.0 L Cholesterol/HDL Ratio 2.65 Urine Color Urine Clarity Urine pH Ur Specific [place] Urine Protein Urine Glucose (UA) Urine Ketones Urine Occult Blood Urine Nitrate Urine Bilirubin Urine Urobilinogen Ur Leukocyte Esterase Urine RBC Urine WBC Ur Squamous Epith Cells Micro UA Comment Urine Culture Comments Blood Type Antibody Screen 05/23/18 05/23/18 05/23/18 08:28 12:04 17:05 CBC w Diff WBC RBC Hgb Hct MCV MCH MCHC RDW Plt Count MPV Neut % (Auto) Lymph % (Auto) [place] % (Auto) Eos % (Auto) Baso % (Auto) Neut # (Auto) Lymph # (Auto) [place] # (Auto) Eos # (Auto) Baso # (Auto) WBC Differential Diff Scan Differential Comment Platelet Estimate Platelet Morphology Ovalocytes PT INR APTT 44.3 H Sodium Potassium Chloride Carbon Dioxide Anion Gap BUN Creatinine Estimated GFR POC Glucose 135 H 58 L Random Glucose Calcium Total Creatine Kinase CK-MB (CK-2) Troponin I Triglycerides Cholesterol LDL Cholesterol, Calc HDL Cholesterol Cholesterol/HDL Ratio Urine Color Urine Clarity Urine pH Ur Specific [place] Urine Protein Urine Glucose (UA) Urine Ketones Urine Occult Blood Urine Nitrate Urine Bilirubin Urine Urobilinogen Ur Leukocyte Esterase Urine RBC Urine WBC Ur Squamous Epith Cells Micro UA Comment Urine Culture Comments Blood Type Antibody Screen 05/23/18 05/23/18 05/23/18 17:25 17:25 17:40 CBC w Diff WBC RBC Hgb Hct MCV MCH MCHC RDW Plt Count MPV Neut % (Auto) Lymph % (Auto) [place] % (Auto) Eos % (Auto) Baso % (Auto) Neut # (Auto) Lymph # (Auto) [place] # (Auto) Eos # (Auto) Baso # (Auto) WBC Differential Diff Scan Differential Comment Platelet Estimate Platelet Morphology Ovalocytes PT INR APTT 42.6 H Sodium Potassium Chloride Carbon Dioxide Anion Gap BUN Creatinine Estimated GFR POC Glucose 151 H Random Glucose 98 Calcium Total Creatine Kinase CK-MB (CK-2) Troponin I Triglycerides Cholesterol LDL Cholesterol, Calc HDL Cholesterol Cholesterol/HDL Ratio Urine Color Urine Clarity Urine pH Ur Specific [place] Urine Protein Urine Glucose (UA) Urine Ketones Urine Occult Blood Urine Nitrate Urine Bilirubin Urine Urobilinogen Ur Leukocyte Esterase Urine RBC Urine WBC Ur Squamous Epith Cells Micro UA Comment Urine Culture Comments Blood Type Antibody Screen 05/23/18 05/24/18 05/24/18 22:52 04:53 04:53 CBC w Diff Auto diff final WBC 6.7 RBC 4.15 L Hgb 11.5 L Hct 36.0 L MCV 86.7 MCH 27.7 MCHC 32.0 RDW 16.1 Plt Count 113 L MPV 10.9 Neut % (Auto) 75.0 H Lymph % (Auto) 11.3 [place] % (Auto) 9.0 H Eos % (Auto) 4.1 H Baso % (Auto) 0.6 Neut # (Auto) 5.0 Lymph # (Auto) 0.8 L [place] # (Auto) 0.6 Eos # (Auto) 0.3 Baso # (Auto) 0.0 WBC Differential . Diff Scan Differential Comment . Platelet Estimate Platelet Morphology Ovalocytes PT INR APTT 41.8 H Sodium Potassium Chloride Carbon Dioxide Anion Gap BUN Creatinine Estimated GFR POC Glucose 60 L Random Glucose Calcium Total Creatine Kinase CK-MB (CK-2) Troponin I Triglycerides Cholesterol LDL Cholesterol, Calc HDL Cholesterol Cholesterol/HDL Ratio Urine Color Urine Clarity Urine pH Ur Specific [place] Urine Protein Urine Glucose (UA) Urine Ketones Urine Occult Blood Urine Nitrate Urine Bilirubin Urine Urobilinogen Ur Leukocyte Esterase Urine RBC Urine WBC Ur Squamous Epith Cells Micro UA Comment Urine Culture Comments Blood Type Antibody Screen 05/24/18 05/24/18 05/24/18 04:53 04:53 07:50 CBC w Diff WBC RBC Hgb Hct MCV MCH MCHC RDW Plt Count MPV Neut % (Auto) Lymph % (Auto) [place] % (Auto) Eos % (Auto) Baso % (Auto) Neut # (Auto) Lymph # (Auto) [place] # (Auto) Eos # (Auto) Baso # (Auto) WBC Differential Diff Scan Differential Comment Platelet Estimate Platelet Morphology Ovalocytes PT 12.9 H INR 1.3 APTT Sodium 138 Potassium 4.0 Chloride 102 Carbon Dioxide 29.2 Anion Gap 7 BUN 30 H Creatinine 1.40 H Estimated GFR 49 L POC Glucose 109 Random Glucose 130 H Calcium 9.2 Total Creatine Kinase CK-MB (CK-2) Troponin I Triglycerides Cholesterol LDL Cholesterol, Calc HDL Cholesterol Cholesterol/HDL Ratio Urine Color Urine Clarity Urine pH Ur Specific [place] Urine Protein Urine Glucose (UA) Urine Ketones Urine Occult Blood Urine Nitrate Urine Bilirubin Urine Urobilinogen Ur Leukocyte Esterase Urine RBC Urine WBC Ur Squamous Epith Cells Micro UA Comment Urine Culture Comments Blood Type Antibody Screen 05/24/18 05/24/18 05/24/18 11:56 16:19 22:50 CBC w Diff WBC RBC Hgb Hct MCV MCH MCHC RDW Plt Count MPV Neut % (Auto) Lymph % (Auto) [place] % (Auto) Eos % (Auto) Baso % (Auto) Neut # (Auto) Lymph # (Auto) [place] # (Auto) Eos # (Auto) Baso # (Auto) WBC Differential Diff Scan Differential Comment Platelet Estimate Platelet Morphology Ovalocytes PT INR APTT Sodium Potassium Chloride Carbon Dioxide Anion Gap BUN Creatinine Estimated GFR POC Glucose 147 H 95 67 L Random Glucose Calcium Total Creatine Kinase CK-MB (CK-2) Troponin I Triglycerides Cholesterol LDL Cholesterol, Calc HDL Cholesterol Cholesterol/HDL Ratio Urine Color Urine Clarity Urine pH Ur Specific [place] Urine Protein Urine Glucose (UA) Urine Ketones Urine Occult Blood Urine Nitrate Urine Bilirubin Urine Urobilinogen Ur Leukocyte Esterase Urine RBC Urine WBC Ur Squamous Epith Cells Micro UA Comment Urine Culture Comments Blood Type Antibody Screen 05/25/18 05/25/18 05/25/18 05:56 05:56 05:56 CBC w Diff Slide review pending WBC 5.6 RBC 4.11 L Hgb 11.5 L Hct 35.7 L MCV 86.8 MCH 28.0 MCHC 32.2 RDW 16.3 Plt Count 97 L MPV 10.3 Neut % (Auto) 69.8 Lymph % (Auto) 13.1 [place] % (Auto) 10.7 H Eos % (Auto) 5.7 H Baso % (Auto) 0.7 Neut # (Auto) 4.0 Lymph # (Auto) 0.7 L [place] # (Auto) 0.6 Eos # (Auto) 0.3 Baso # (Auto) 0.0 WBC Differential . Diff Scan Auto diff confirmed Differential Comment . Platelet Estimate Low L Platelet Morphology Normal Ovalocytes 1+ H PT 13.4 H INR 1.3 APTT Sodium 139 Potassium 4.2 Chloride 102 Carbon Dioxide 29.2 Anion Gap 8 BUN 27 H Creatinine 1.40 H Estimated GFR 49 L POC Glucose Random Glucose 121 H Calcium 9.2 Total Creatine Kinase CK-MB (CK-2) Troponin I Triglycerides Cholesterol LDL Cholesterol, Calc HDL Cholesterol Cholesterol/HDL Ratio Urine Color Urine Clarity Urine pH Ur Specific [place] Urine Protein Urine Glucose (UA) Urine Ketones Urine Occult Blood Urine Nitrate Urine Bilirubin Urine Urobilinogen Ur Leukocyte Esterase Urine RBC Urine WBC Ur Squamous Epith Cells Micro UA Comment Urine Culture Comments Blood Type Antibody Screen 05/25/18 05/25/18 05/25/18 05:56 07:51 10:53 CBC w Diff WBC RBC Hgb Hct MCV MCH MCHC RDW Plt Count MPV Neut % (Auto) Lymph % (Auto) [place] % (Auto) Eos % (Auto) Baso % (Auto) Neut # (Auto) Lymph # (Auto) [place] # (Auto) Eos # (Auto) Baso # (Auto) WBC Differential Diff Scan Differential Comment Platelet Estimate Platelet Morphology Ovalocytes PT INR APTT 44.9 H Sodium Potassium Chloride Carbon Dioxide Anion Gap BUN Creatinine Estimated GFR POC Glucose 114 H 140 H Random Glucose Calcium Total Creatine Kinase CK-MB (CK-2) Troponin I Triglycerides Cholesterol LDL Cholesterol, Calc HDL Cholesterol Cholesterol/HDL Ratio Urine Color Urine Clarity Urine pH Ur Specific [place] Urine Protein Urine Glucose (UA) Urine Ketones Urine Occult Blood Urine Nitrate Urine Bilirubin Urine Urobilinogen Ur Leukocyte Esterase Urine RBC Urine WBC Ur Squamous Epith Cells Micro UA Comment Urine Culture Comments Blood Type Antibody Screen 05/25/18 05/26/18 05/26/18 16:44 06:30 06:30 CBC w Diff WBC RBC Hgb Hct MCV MCH MCHC RDW Plt Count MPV Neut % (Auto) Lymph % (Auto) [place] % (Auto) Eos % (Auto) Baso % (Auto) Neut # (Auto) Lymph # (Auto) [place] # (Auto) Eos # (Auto) Baso # (Auto) WBC Differential Diff Scan Differential Comment Platelet Estimate Platelet Morphology Ovalocytes PT 14.6 H INR 1.4 APTT 44.7 H Sodium Potassium Chloride Carbon Dioxide Anion Gap BUN Creatinine Estimated GFR POC Glucose 183 H Random Glucose Calcium Total Creatine Kinase CK-MB (CK-2) Troponin I Triglycerides Cholesterol LDL Cholesterol, Calc HDL Cholesterol Cholesterol/HDL Ratio Urine Color Urine Clarity Urine pH Ur Specific [place] Urine Protein Urine Glucose (UA) Urine Ketones Urine Occult Blood Urine Nitrate Urine Bilirubin Urine Urobilinogen Ur Leukocyte Esterase Urine RBC Urine WBC Ur Squamous Epith Cells Micro UA Comment Urine Culture Comments Blood Type Antibody Screen 05/26/18 07:30 CBC w Diff WBC RBC Hgb Hct MCV MCH MCHC RDW Plt Count MPV Neut % (Auto) Lymph % (Auto) [place] % (Auto) Eos % (Auto) Baso % (Auto) Neut # (Auto) Lymph # (Auto) [place] # (Auto) Eos # (Auto) Baso # (Auto) WBC Differential Diff Scan Differential Comment Platelet Estimate Platelet Morphology Ovalocytes PT INR APTT Sodium Potassium Chloride Carbon Dioxide Anion Gap BUN Creatinine Estimated GFR POC Glucose 119 H Random Glucose Calcium Total Creatine Kinase CK-MB (CK-2) Troponin I Triglycerides Cholesterol LDL Cholesterol, Calc HDL Cholesterol Cholesterol/HDL Ratio Urine Color Urine Clarity Urine pH Ur Specific [place] Urine Protein Urine Glucose (UA) Urine Ketones Urine Occult Blood Urine Nitrate Urine Bilirubin Urine Urobilinogen Ur Leukocyte Esterase Urine RBC Urine WBC Ur Squamous Epith Cells Micro UA Comment Urine Culture Comments Blood Type Antibody Screen Labs on day of discharge: Labs from last 24 hours 05/26/18 05/26/18 05/26/18 07:30 06:30 06:30 PT 14.6 H INR 1.4 APTT 44.7 H POC Glucose 119 H 05/25/18 16:44 PT INR APTT POC Glucose 183 H - Impressions ITS Impressions Chest X-Ray 05/22/18 22:04 CONCLUSION: 1. Blunting of the right costophrenic angle consistent with small effusion. 2. Moderate cardiomegaly with no perihilar edema. 3. Status post median sternotomy. Head CT 05/22/18 22:04 CONCLUSION: 1. Subcentimeter subacute or older lacunar infarct in the left periventricular white matter. No acute hemorrhage or mass effect. Report was called by [Dr. Villeda to Dr. Henderson at 10:23 PM ] Head CTA 05/22/18 22:04 CONCLUSION: 1. Examination within normal limits for age. Neck CTA 05/22/18 22:04 CONCLUSION: 1. Bilateral calcific plaquing in the carotid bulbs and internal carotid arteries with approximately 50% diameter stenosis. 2. Calcified plaque in the origin of the great vessels with no significant stenosis. Discharge Plan - Discharge Disposition Patient Disposition: 01 Discharge Home - Discharge Condition Condition: Good - Discharge Order Discharge Orders: Discharge Order (Routine); Ordered 05/26/18 Ordered By: Alan Dillon - Discharge Details Anticipated Discharge Date: 05/26/18 - Physicians Team Primary Care Provider: Rajat Conde Attending Provider: Alan Dillon Other Providers: Jose Luis Steele MD
[2018-05-26] MEDS: Ferrous Sulfate 325 MG Tablet PO SCH (12:17)
== END 2018-05-26 13:40 | disposition home or self-care (01) ==
LOC: PHED 21:56 → PHEDA 23:46 → PH3 05-23 01:15
PROVIDERS: ADMIT Family Medicine; ATTEND Family Medicine